=== PATIENT | female | born 1940 | race Caucasian/White ===

== ENCOUNTER 2017-12-17 09:34 | Emergency (ER) | payer MEDICARE ==
[~2017-12-17] VITALS: Ht 160 cm; Wt 43.1 kg
--- NOTE | 2017-12-17 10:12 | PHYS DOC ---
Adult General Chief Complaint Chief Complaint: MECHANICAL FALL HPI HPI Patient is a 77 year old female who presents with pain to her right rib cage after she fell at approximately 6:00 this morning. She states that she fell backwards and a table fell with her impacting on her right anterior rib cage. She denies loss of consciousness or other injury. She has not taken anything for pain this morning. Review of Systems Review of Systems Constitutional: Denies fever or chills [] Respiratory: Denies cough or shortness of breath [] Cardiovascular: No additional information not addressed in HPI [] GI: Denies abdominal pain, nausea, vomiting, bloody stools or diarrhea [] : Denies dysuria or hematuria [] Musculoskeletal: See history of present illness Integument: Denies rash or skin lesions [] Neurologic: Denies headache, focal weakness or sensory changes [] Endocrine: Denies polyuria or polydipsia [] All other systems were reviewed and found to be within normal limits, except as documented in this note. Current Medications Current Medications Current Medications Medications (Trade) Dose Ordered Sig/Sangeeta Start Time Stop Time Status Last Admin Dose Admin Ibuprofen (Motrin) 400 mg 1X ONCE 12/17/17 10:30 12/17/17 10:31 DC 12/17/17 10:06 400 MG Allergies Allergies Allergies Coded Allergies Type Severity Reaction Last Updated Verified Penicillins Allergy Unknown HIVES 12/17/17 Yes acetaminophen Allergy Unknown NAUSEA 12/17/17 Yes codeine Allergy Unknown INSOMNIA 12/17/17 Yes Physical Exam Physical Exam Constitutional: Well developed, well nourished, no acute distress, non-toxic appearance. [] Cardiovascular:Heart rate regular rhythm, no murmur [] Lungs & Thorax: Bilateral breath sounds clear to auscultation, tenderness to right anterior ribs, no gross deformities noted [] Abdomen: Bowel sounds normal, soft, no tenderness, no masses, no pulsatile masses. [] Skin: Warm, dry, no erythema, no rash. [] Back: No tenderness, no CVA tenderness. [] Neurologic: Alert and oriented X 3, normal motor function, normal sensory function, no focal deficits noted. [] Psychologic: Affect normal, judgement normal, mood normal. [] Current Patient Data Vital Signs Vital Signs Date Time Temp Pulse Resp B/P (MAP) Pulse Ox O2 Delivery O2 Flow Rate FiO2 12/17/17 11:12 71 95 12/17/17 09:51 97.6 20 155/63 (93) Room Air 97.6 EKG EKG [] Radiology/Procedures Radiology/Procedures [] PATIENT: YENNI DAMON ACCOUNT: [id number] : 1940 LOCATION: ER AGE: 77 SEX: F EXAM STATUS: REG ER ORD. PHYSICIAN: JENNIFER LYNN APRN REASON: FELL INTO TABLE THIS MORNING PROCEDURE: RIBS RIGHT AND PA CHEST PA chest and right rib radiographs, 3 images. History: Fell into table this morning. Severe right pain. Comparison: None. Findings: Cardiomediastinal silhouette is within normal limits for size. Bilateral lung borges appear clear without evidence of infiltrate, effusion, or pneumothorax. Aortic atherosclerosis is seen. Old granulomatous disease of the chest is noted. Nondisplaced right lateral 9th and 10th rib fractures are seen. Impression: 1. No acute airspace disease. 2. Acute right 9th and 10th rib fractures. Electronically signed by: Jay Kwok MD (12/17/2017 10:40 AM) [facility] DICTATED and SIGNED BY: JAY KWOK MD DATE: 12/17/17 1037 Course & Med Decision Making Course & Med Decision Making Pertinent Labs and Imaging studies reviewed. (See chart for details) []The patient was given an incentive spirometer and training in the emergency department. The patient refuses narcotic pain medication and would prefer to use ibuprofen. Dragon Disclaimer Dragon Disclaimer This electronic medical record was generated, in whole or in part, using a voice recognition dictation system. Departure Departure Impression: Primary Impression: Rib fractures Disposition: 01 HOME, SELF-CARE Condition: STABLE Referrals: YAMILEX CRAWFORD MD (PCP) Patient Instructions: Rib Fracture Additional Instructions: Use the incentive spirometer as respiratory taught you. Take ibuprofen for pain on a scheduled basis. Have a pillow for splinting available for coughing, sneezing or any sudden movements. Follow-up with your primary care provider in one week for recheck or return to the emergency department if worsening. JENNIFER LYNN APRN Dec 17, 2017 10:12
[2017-12-17] MEDS ORDERED: IBUPROFEN 400 MG TABLET. PO ONE (10:30)
--- NOTE | 2017-12-17 10:43 | RAD ---
PA chest and right rib radiographs, 3 images. History: Fell into table this morning. Severe right pain. Comparison: None. Findings: Cardiomediastinal silhouette is within normal limits for size. Bilateral lung borges appear clear without evidence of infiltrate, effusion, or pneumothorax. Aortic atherosclerosis is seen. Old granulomatous disease of the chest is noted. Nondisplaced right lateral 9th and 10th rib fractures are seen. Impression: 1. No acute airspace disease. 2. Acute right 9th and 10th rib fractures. Electronically signed by: Jay Mcmanus MD (12/17/2017 10:40 AM) [place] [id number]
[2017-12-17 11:12] VITALS: BP 154/73
== END 2017-12-17 11:13 | disposition home or self-care (01) ==
LOC: ER 09:34
DX: S22.41XA Multiple fractures of ribs, right side, initial encounter for closed fracture (principal); Z88.0 Allergy status to penicillin; Z88.5 Allergy status to narcotic agent; Z88.6 Allergy status to analgesic agent; W20.8XXA Other cause of strike by thrown, projected or falling object, initial encounter; Y99.8 Other external cause status; Y93.89 Activity, other specified; Y92.89 Other specified places as the place of occurrence of the external cause
CPT/HCPCS: 71101; 99284

== ENCOUNTER → 2018-01-07 | Outpatient (CLI) | payer MEDICARE ==
[2017-12-17 11:12] VITALS: BP 154/73
--- NOTE | 2018-01-07 10:27 | KCIC ---
EXAM: Dual energy x-ray absorptiometry (DEXA). HISTORY: Postmenopausal female presents for osteoporosis screening. COMPARISON: None. TECHNIQUE: Dual energy x-ray absorptiometry of the lumbar spine and left hip was performed. Calculation of bone mineral density based on standard deviations above or below the expected young adult normal value (T-score) was completed. FINDINGS: The average bone mineral density in the 1st through 4th lumbar vertebrae is 0.651 g/cmxcm, corresponding with a T-score of -3.6. The average total bone mineral density in the left hip is 0.512 g/cmxcm, corresponding with a T-score of -3.5. IMPRESSION: Osteoporosis measured at the lumbar spine and left hip. Note: Definitions established by the World Health Organization: 1. Normal: T-score is -1.0 or above. 2. Osteopenia: T-score is between -1.0 and -2.5 . 3. Osteoporosis: T-score is -2.5 or below. Electronically signed by: Rachel Woodson MD (01/07/2018 10:24 AM) [place] [id number]
== END | disposition home or self-care (01) ==
LOC: KCIC DEXA 09:23
PROVIDERS: ATTEND Family Medicine
DX: Z13.820 Encounter for screening for osteoporosis (principal); M81.8 Other osteoporosis without current pathological fracture; Z88.0 Allergy status to penicillin; Z88.5 Allergy status to narcotic agent; Z88.6 Allergy status to analgesic agent
CPT/HCPCS: 77080

== ENCOUNTER 2018-07-10 14:14 | Emergency (ER) | payer MEDICARE ==
[~2018-07-10] VITALS: Ht 160 cm; Wt 42.2 kg
[2018-07-10] MEDS ORDERED: IV NORMAL SALINE 1000ML BAG 1,000 ML IV ONE (14:30)
[2018-07-10] MEDS ORDERED: cloNIDine HCL 0.1 MG TABLET PO ONE (14:30)
[2018-07-10 14:44] LABS: BASO # 0.1 x10^3/uL (0.0-0.2); BASO % 1 % (0-3); EOS # 0.1 x10^3/uL (0.0-0.7); EOS % 1 % (0-3); HEMATOCRIT 39.7 % (36.0-47.0); HEMOGLOBIN 13.3 g/dL (12.0-15.5); LYMPH % 28 % (24-48); MEAN CORPUSCULAR HEMOGLOBIN 29 pg (25-35); MEAN CORPUSCULAR HGB CONC 34 g/dL (31-37); MEAN CORPUSCULAR VOLUME 87 fL (79-100); MONO # 0.4 x10^3/uL (0.0-1.1); MONO % 6 % (0-9); NEUT # 4.5 x10^3uL (1.8-7.7); NEUT % 64 % (31-73); PLATELET COUNT 301 x10^3/uL (140-400); RED BLOOD COUNT 4.55 x10^6/uL (3.50-5.40); WHITE BLOOD COUNT 7.1 x10^3/uL (4.0-11.0)
[2018-07-10 14:58] LABS: CALCIUM 9.5 mg/dL (8.5-10.1); CREATININE 0.6 mg/dL (0.6-1.0); GFR 97.2; POTASSIUM 3.5 mmol/L (3.5-5.1)
[2018-07-10 15:04] LABS: ALBUMIN 3.9 g/dL (3.4-5.0); ALBUMIN/GLOBULIN RATIO 1.1 (1.0-1.7); TOTAL BILIRUBIN 0.6 mg/dL (0.2-1.0); TOTAL PROTEIN 7.3 g/dL (6.4-8.2)
--- NOTE | 2018-07-10 15:11 | RAD ---
AP portable chest 07/10/2018. Reason for exam: Hypertension. Comparison is made with a study done on 12/17/2017. No new infiltrate or effusion is seen. There is suggestion of some right apical scarring similar to the prior exam. Heart size and pulmonary vascularity appear normal. IMPRESSION: No acute findings. Electronically signed by: Emre Zarate Jr., MD (07/10/2018 3:08 PM) [facility] [place]
--- NOTE | 2018-07-10 15:12 | RAD ---
CT head without contrast 07/10/2018. Reason for exam: Hypertension. Headache. Noncontrast images were performed. Exposure: One or more of the following individualized dose reduction techniques were utilized for this examination: 1. Automated exposure control 2. Adjustment of the mA and/or kV according to patient size 3. Use of iterative reconstruction technique. There is no apparent intracranial mass, hemorrhage or abnormal extra-axial fluid collection. There is minimal low attenuation in the cerebral white matter suggesting chronic small vessel ischemic injury. No other area of abnormal density is identified. The ventricles and basilar cisterns are normally positioned. The sinuses and mastoid air cells appear clear. IMPRESSION: No acute intracranial abnormality. Electronically signed by: Emre Zarate Jr., MD (07/10/2018 3:09 PM) [facility] [place]
[2018-07-10] MEDS ORDERED: KETOROLAC 15 MG/ML VIAL. IV ONE (16:00)
[2018-07-10 16:50] VITALS: BP 158/71
[2018-07-10] MEDS ORDERED: METOPROLOL TARTRATE 5 MG/5 ML VIAL. IVP ONE ×2 (16:53→17:00)
--- NOTE | 2018-07-10 16:57 | PHYS DOC ---
Past Medical History Past Medical History: Anemia, High Cholesterol, Hypertension Additional Past Medical Histor: left sided detached retina Additional Information: 4 ciggs per day Alcohol Use: Rarely Additional Information: rare Drug Use: None Adult General Chief Complaint Chief Complaint: HEADACHE HPI HPI Patient is a 78 year old female who presents with headache 2 hours. The patient states that she also has had hypertension. She states that in the past her high blood pressure caused her to have a headache. She feels that this might be what is happening today. She lives in an assisted living facility and could not find anyone to drive her and used EMS to bring her to the hospital. She denies chest pain, shortness of breath or diaphoresis. She denies paresthesias or changes in vision. The patient states that she did take her medications today but is unsure of what they are called. She has a history of a detached retina but is denying any visual changes at this time. Review of Systems Review of Systems Constitutional: Denies fever or chills [] Respiratory: Denies cough or shortness of breath [] Cardiovascular: No additional information not addressed in HPI [] GI: Denies abdominal pain, nausea, vomiting, bloody stools or diarrhea [] : Denies dysuria or hematuria [] Musculoskeletal: Denies back pain or joint pain [] Integument: Denies rash or skin lesions [] Neurologic: See history of present illness Endocrine: Denies polyuria or polydipsia [] All other systems were reviewed and found to be within normal limits, except as documented in this note. Current Medications Current Medications Current Medications Medications (Trade) Dose Ordered Sig/Sangeeta Start Time Stop Time Status Last Admin Dose Admin Clonidine HCl (Catapres) 0.1 mg 1X ONCE 07/10/18 14:30 07/10/18 14:31 DC 07/10/18 15:23 0.1 MG Ketorolac Tromethamine (Toradol 15mg Vial) 15 mg 1X ONCE 07/10/18 16:00 07/10/18 16:01 DC 07/10/18 16:02 15 MG Metoprolol Tartrate (Lopressor Vial) 5 mg STK-MED ONCE 07/10/18 16:53 07/10/18 16:54 DC Sodium Chloride 1,000 ml @ 1,000 mls/hr 1X ONCE 07/10/18 14:30 3/2/19 15:29 DC 07/10/18 15:22 1,000 MLS/HR Allergies Allergies Allergies Coded Allergies Type Severity Reaction Last Updated Verified Penicillins Allergy Unknown HIVES 12/17/17 Yes acetaminophen Allergy Unknown NAUSEA 12/17/17 Yes codeine Allergy Unknown INSOMNIA 12/17/17 Yes Physical Exam Physical Exam Constitutional: Well developed, well nourished, no acute distress, non-toxic appearance. [] HENT: Normocephalic, atraumatic, bilateral external ears normal, oropharynx moist, no oral exudates, nose normal. [] Eyes: PERRLA, EOMI, conjunctiva normal, no discharge. [] Neck: Normal range of motion, no tenderness, supple, no stridor. [] Cardiovascular:Heart rate regular rhythm, no murmur [] Lungs & Thorax: Bilateral breath sounds clear to auscultation [] Abdomen: Bowel sounds normal, soft, no tenderness, no masses, no pulsatile masses. [] Skin: Warm, dry, no erythema, no rash. [] Back: No tenderness, no CVA tenderness. [] Extremities: No tenderness, no cyanosis, no clubbing, ROM intact, no edema. [] Neurologic: Alert and oriented X 3, normal motor function, normal sensory function, no focal deficits noted, cranial nerves II through XII are grossly intact. [] Psychologic: Affect normal, judgement normal, mood normal. [] Current Patient Data Vital Signs Vital Signs Date Time Temp Pulse Resp B/P (MAP) Pulse Ox O2 Delivery O2 Flow Rate FiO2 07/10/18 17:00 78 07/10/18 16:50 16 99 07/10/18 15:23 169/65 07/10/18 14:14 97.7 Room Air 97.7 Lab Values Laboratory Tests Test 07/10/18 14:35 White Blood Count 7.1 x10^3/uL (4.0-11.0) Red Blood Count 4.55 x10^6/uL (3.50-5.40) Hemoglobin 13.3 g/dL (12.0-15.5) Hematocrit 39.7 % (36.0-47.0) Mean Corpuscular Volume 87 fL (79-100) Mean Corpuscular Hemoglobin 29 pg (25-35) Mean Corpuscular Hemoglobin Concent 34 g/dL (31-37) Red Cell Distribution Width 14.0 % (11.5-14.5) Platelet Count 301 x10^3/uL (140-400) Neutrophils (%) (Auto) 64 % (31-73) Lymphocytes (%) (Auto) 28 % (24-48) Monocytes (%) (Auto) 6 % (0-9) Eosinophils (%) (Auto) 1 % (0-3) Basophils (%) (Auto) 1 % (0-3) Neutrophils # (Auto) 4.5 x10^3uL (1.8-7.7) Lymphocytes # (Auto) 2.0 x10^3/uL (1.0-4.8) Monocytes # (Auto) 0.4 x10^3/uL (0.0-1.1) Eosinophils # (Auto) 0.1 x10^3/uL (0.0-0.7) Basophils # (Auto) 0.1 x10^3/uL (0.0-0.2) Sodium Level 136 mmol/L (136-145) Potassium Level 3.5 mmol/L (3.5-5.1) Chloride Level 98 mmol/L (98-107) Carbon Dioxide Level 23 mmol/L (21-32) Anion Gap 15 (6-14) H Blood Urea Nitrogen 14 mg/dL (7-20) Creatinine 0.6 mg/dL (0.6-1.0) Estimated GFR (Cockcroft-Gault) 97.2 BUN/Creatinine Ratio 23 (6-20) H Glucose Level 97 mg/dL (70-99) Calcium Level 9.5 mg/dL (8.5-10.1) Total Bilirubin 0.6 mg/dL (0.2-1.0) Aspartate Amino Transferase (AST) 20 U/L (15-37) Alanine Aminotransferase (ALT) 27 U/L (14-59) Alkaline Phosphatase 77 U/L (46-116) Troponin I Quantitative < 0.017 ng/mL (0.000-0.055) Total Protein 7.3 g/dL (6.4-8.2) Albumin 3.9 g/dL (3.4-5.0) Albumin/Globulin Ratio 1.1 (1.0-1.7) Laboratory Tests 07/10/18 14:35 Laboratory Tests 07/10/18 14:35 EKG EKG [] Radiology/Procedures Radiology/Procedures []Signed PATIENT: YENNI DAMON ACCOUNT: [id number] : 1940 LOCATION: ER AGE: 78 SEX: F EXAM STATUS: PRE ER ORD. PHYSICIAN: JENNIFER LYNN APRN REASON: hypertension PROCEDURE: CT HEAD WO CONTRAST CT head without contrast 07/10/2018. Reason for exam: Hypertension. Headache. Noncontrast images were performed. Exposure: One or more of the following individualized dose reduction techniques were utilized for this examination: 1. Automated exposure control 2. Adjustment of the mA and/or kV according to patient size 3. Use of iterative reconstruction technique. There is no apparent intracranial mass, hemorrhage or abnormal extra-axial fluid collection. There is minimal low attenuation in the cerebral white matter suggesting chronic small vessel ischemic injury. No other area of abnormal density is identified. The ventricles and basilar cisterns are normally positioned. The sinuses and mastoid air cells appear clear. IMPRESSION: No acute intracranial abnormality. Electronically signed by: Yo Zarate Jr., MD (07/10/2018 3:09 PM) [facility] [place] DICTATED and SIGNED BY: YO ZARATE Jr, MD DATE: 07/10/18 1508 Signed PATIENT: YENNI DAMON ACCOUNT: [id number] : 1940 LOCATION: ER AGE: 78 SEX: F EXAM STATUS: PRE ER ORD. PHYSICIAN: JENNIFER LYNN APRN REASON: hypertension PROCEDURE: CHEST AP ONLY AP portable chest 07/10/2018. Reason for exam: Hypertension. Comparison is made with a study done on 12/17/2017. No new infiltrate or effusion is seen. There is suggestion of some right apical scarring similar to the prior exam. Heart size and pulmonary vascularity appear normal. IMPRESSION: No acute findings. Electronically signed by: Yo Zarate Jr., MD (07/10/2018 3:08 PM) [facility] [place] DICTATED and SIGNED BY: YO ZARATE Jr, MD DATE: 07/10/18 150 Course & Med Decision Making Course & Med Decision Making Pertinent Labs and Imaging studies reviewed. (See chart for details) []The patient was given Lopressor and clonidine in the emergency department as well as fluids and Toradol. Her headache has completely resolved and her blood pressure is coming down into normal range. She states that she feels much better and would like to be discharged home. Dragon Disclaimer Dragon Disclaimer This electronic medical record was generated, in whole or in part, using a voice recognition dictation system. Departure Departure Impression: Primary Impression: Headache Additional Impression: Hypertension Disposition: 01 HOME, SELF-CARE Condition: STABLE Referrals: YAMILEX CRAWFORD MD (PCP) Patient Instructions: General Headache Without Cause, Hypertension Additional Instructions: You may take ibuprofen for your headache. Follow-up with your primary care provider for a recheck in 2 days. If worsening return to the emergency department. Problem Qualifiers JENNIFER LYNN APRN Jul 10, 2018 16:57
--- NOTE | 2018-07-11 07:54 | EKG ---
[facility] [address] [place] [address] Test Date: 2018-07-10 Test Time: 14:21:45 Pat Name: YENNI DAMON Department: Room: Gender: F [employer]: : 1940 Requested By: JENNIFER LYNN Order Number: [id number] Reading MD: Sarabjit Roberts MD Measurements Intervals [place] Rate: 81 P: 56 NM: 122 QRS: 14 QRSD: 78 T: 49 QT: 390 QTc: 459 Interpretive Statements SINUS RHYTHM Electronically Signed On 07-13-2018 7:44:30 [employer]UAL [employer]CRUITER by Sarabjit Roberts MD
== END 2018-07-10 17:06 | disposition home or self-care (01) ==
LOC: ER 14:14
DX: R51 Headache (principal); I10 Essential (primary) hypertension; E78.00 Pure hypercholesterolemia, unspecified; F17.210 Nicotine dependence, cigarettes, uncomplicated; Z88.0 Allergy status to penicillin; Z88.5 Allergy status to narcotic agent; Z88.6 Allergy status to analgesic agent
CPT/HCPCS: 36415; 70450; 71045; 80053; 84484; 85025; 93005; 96374; 99284; J1885; J7030

== ENCOUNTER 2020-12-29 15:26 | Emergency (ER) | payer MEDICARE ==
[~2020-12-29] VITALS: Ht 160 cm; Wt 40.0 kg
[2020-12-29 16:07] LABS: BASO # 0.1 x10^3/uL (0.0-0.2); BASO % 1 % (0-3); EOS # 0.1 x10^3/uL (0.0-0.7); EOS % 1 % (0-3); HEMATOCRIT 40.1 % (36.0-47.0); HEMOGLOBIN 13.7 g/dL (12.0-15.5); LYMPH # 2.2 x10^3/uL (1.0-4.8); LYMPH % 26 % (24-48); MEAN CORPUSCULAR HEMOGLOBIN 30 pg (25-35); MEAN CORPUSCULAR HGB CONC 34 g/dL (31-37); MEAN CORPUSCULAR VOLUME 89 fL (79-100); MONO # 0.6 x10^3/uL (0.0-1.1); MONO % 7 % (0-9); NEUT # 5.3 x10^3/uL (1.8-7.7); NEUT % 65 % (31-73); PLATELET COUNT 316 x10^3/uL (140-400); RED BLOOD COUNT 4.52 x10^6/uL (3.50-5.40); WHITE BLOOD COUNT 8.2 x10^3/uL (4.0-11.0)
--- NOTE | 2020-12-29 16:16 | RAD ---
XR CHEST 1V CLINICAL INDICATIONS: Hypertension: COMPARISON: July 10, 2018. Findings: Chronic hyperinflation and interstitial lung disease is seen consistent with COPD. Old gran ulomatous disease evident. No new lung infiltrate or pleural effusion or pulmonary edema or lung mass or pneumothorax is seen. The heart size, pulmonary vasculature, mediastinum and both nabil are stabl e. IMPRESSION: COPD. No new radiographic abnormality is seen. Electronically signed by: Lucio Machado MD (12/29/2020 4:13 PM) [id number]
--- NOTE | 2020-12-29 16:35 | PHYS DOC ---
Past Medical History Past Medical History: Anemia, High Cholesterol, Hypertension Additional Past Medical Histor: left sided detached retina Past Surgical History: No Surgical History Smoking Status: Current Every Day Smoker Alcohol Use: Rarely Drug Use: None General Adult EDM: Chief Complaint: HYPERTENSION HPI: HPI: 80-year-old female past medical history of hypertension, hyperlipidemia and tobacco dependence, presents the ED for by EMS with concern for elevated blood pressure stating "I felt like it was going to pass out," with associated light- headedness, shaking, right shoulder and right neck pain. Reports her blood pressure was 160/92. States her blood pressure is normally in the 140/80 range. Has not missed her blood pressure medications. Reports she's tolerating food and drink and states "I eat alot." Denies any associated chest pain, shortness of breath, syncope, head injury or loss of consciousness. Denies any substance abuse. Review of Systems: Review of Systems: Constitutional: Denies fever or chills. [] Eyes: Denies change in visual acuity. [] HENT: Denies nasal congestion or sore throat. [] Respiratory: Denies cough or shortness of breath. [] Cardiovascular: Denies chest pain or edema. [] GI: Denies abdominal pain, nausea, vomiting, bloody stools or diarrhea. [] Musculoskeletal: Denies back pain or joint pain. [] Integument: Denies rash or blistering lesions Neurologic: Denies focal weakness or sensory changes. [] Endocrine: Denies polyuria or polydipsia. [] Lymphatic: Denies swollen glands. [] Psychiatric: Denies depression or anxiety. [] Heart Score: C/O Chest Pain: No Risk Factors: Risk Factors: DM, Current or recent (<one month) smoker, HTN, HLP, family history of CAD, obesity. Risk Scores: Score 0 - 3: 2.5% MACE over next 6 weeks - Discharge Home Score 4 - 6: 20.3% MACE over next 6 weeks - Admit for Clinical Observation Score 7 - 10: 72.7% MACE over next 6 weeks - Early Invasive Strategies Allergies: Allergies: Allergies Coded Allergies Type Severity Reaction Last Updated Verified Penicillins Allergy Unknown HIVES 12/17/17 Yes acetaminophen Allergy Unknown NAUSEA 12/17/17 Yes codeine Allergy Unknown INSOMNIA 12/17/17 Yes Physical Exam: PE: Constitutional: Well developed, well nourished, no acute distress, non-toxic appearance, very thin HENT: Normocephalic, atraumatic, very dry mucous membranes Eyes: EOMI, conjunctiva normal, no discharge. Neck: Normal range of motion, supple, Cardiovascular: S1/2 present, regular rhythm Lungs & Thorax: Speaking in full sentences, bilateral equal chest rise, no tachypnea or increased work of breathing Abdomen: soft, no tenderness, Skin: Warm, dry, no erythema, no rash. [] Back: No tenderness, no CVA tenderness. [] Extremities: No tenderness, no cyanosis, no lower extremity edema Neurologic: Alert and oriented X 3, normal motor function, normal sensory function, no focal deficits noted. [] Psychologic: Affect normal, judgement normal, mood-anxious Current Patient Data: Labs: Laboratory Tests Test 12/29/20 15:47 White Blood Count 8.2 x10^3/uL (4.0-11.0) Red Blood Count 4.52 x10^6/uL (3.50-5.40) Hemoglobin 13.7 g/dL (12.0-15.5) Hematocrit 40.1 % (36.0-47.0) Mean Corpuscular Volume 89 fL (79-100) Mean Corpuscular Hemoglobin 30 pg (25-35) Mean Corpuscular Hemoglobin Concent 34 g/dL (31-37) Red Cell Distribution Width 14.0 % (11.5-14.5) Platelet Count 316 x10^3/uL (140-400) Neutrophils (%) (Auto) 65 % (31-73) Lymphocytes (%) (Auto) 26 % (24-48) Monocytes (%) (Auto) 7 % (0-9) Eosinophils (%) (Auto) 1 % (0-3) Basophils (%) (Auto) 1 % (0-3) Neutrophils # (Auto) 5.3 x10^3/uL (1.8-7.7) Lymphocytes # (Auto) 2.2 x10^3/uL (1.0-4.8) Monocytes # (Auto) 0.6 x10^3/uL (0.0-1.1) Eosinophils # (Auto) 0.1 x10^3/uL (0.0-0.7) Basophils # (Auto) 0.1 x10^3/uL (0.0-0.2) FT-Thn-R-Type Natriuretic Peptide 169 pg/mL (0-449) Laboratory Tests 12/29/20 15:47 Vital Signs: Vital Signs Date Time Temp Pulse Resp B/P (MAP) Pulse Ox O2 Delivery O2 Flow Rate FiO2 12/29/20 15:44 98.2 87 20 181/73 (100) 97 Room Air 98.2 EKG: EKG: Sinus rhythm 77 bpm, no axis deviation, normal intervals, no T wave inversions, no ST elevations or ST depressions, no active chest pain Radiology/Procedures: Radiology/Procedures: IMAGING REPORT Signed PATIENT: YENNI DAMON RACCOUNT: [id number] : 1940 LOCATION: ER AGE: 80 SEX: F EXAM STATUS: REG ER ORD. PHYSICIAN: RONEL RUSSELL DO REASON: htn PROCEDURE: PORTABLE CHEST 1V XR CHEST 1V CLINICAL INDICATIONS: Hypertension: COMPARISON: July 10, 2018. Findings: Chronic hyperinflation and interstitial lung disease is seen consistent with COPD. Old granulomatous disease evident. No new lung infiltrate or pleural effusion or pulmonary edema or lung mass or pneumothorax is seen. The heart size, pulmonary vasculature, mediastinum and both nabil are stable. IMPRESSION: COPD. No new radiographic abnormality is seen. Electronically signed by: Jose Machado MD (12/29/2020 4:13 PM) [id number] DICTATED and SIGNED BY: JOSE MACHADO MD DATE: 12/29/20 [id number] 0 Course & Med Decision Making: Course & Med Decision Making Pertinent Labs and Imaging studies reviewed. (See chart for details) Concern for asymptomatic, uncontrolled hypertension, in the absence of any neurologic deficits. Will discharge home with strict ED return precautions were given for logic deficits including facial droop, aphasia or weakness, chest beth n or difficulties breathing. Encouraged urgent outpatient follow-up with PMD for repeat BP check. Life-threatening processes were considered but are low suspicion at this time, given history, physical exam and ED workup. Pt was educated on all prescription medications and adverse effects. All patient's questions were answered and pt was stable at time of discharge. Life/limb-threatening differential includes but is not limited to, abdominal aortic aneurysm, aortic dissection, acute coronary syndrome, anemia, valvular disorder, cerebrovascular accident, drug overdose or toxidrome, arrhythmia, prolonged QT syndrome, hemorrhage, heat illness, intracranial hemorrhage, infection including meningitis/encephalitis/sepsis/toxic shock/myocarditis, vertebrobasilar insufficiency, seizure, medication adverse event, illicit drug use, electrolyte disorder I have spoken with the patient and/or caregivers. I explained the patient's condition, diagnoses and treatment plan based on the information available to me at this time. I have answered the patient and/or caregiver's questions and addressed any concerns. The patient and/or caregivers have a good understanding of patient's diagnosis, condition and treatment plan as can be expected at this point. Vital signs have been stable. Patient's condition is stable and appropriate for discharge from the emergency department. Patient will pursue further outpatient evaluation with primary care physician or other designated or consulting physician as outlined in the discharge instructions. The patient and/or caregivers are agreeable to this plan of care and follow-up instructions have been explained in detail. The patient and/or caregivers have received these instructions in written form and have expressed an understanding of the discharge instructions. The patient and/or caregivers are aware that any significant change of condition or worsening of symptoms should prompt immediate return to this or the closest emergency department or call to [phone]. Tootie Disclaimer: Tootie Disclaimer: This electronic medical record was generated, in whole or in part, using a voice recognition dictation system. Departure Departure Impression: Primary Impression: Uncontrolled hypertension Additional Impression: COPD (chronic obstructive pulmonary disease) Disposition: HOME / SELF CARE / HOMELESS Condition: STABLE Referrals: RAFIQ WALKER APRN (PCP) Follow-up with your primary care physician in 24 to 48 hours for blood pressure check OR FOLLOW UP WITH FAMILY MEDICINE: [address], [address] [place] [address] Patient Instructions: Chronic Obstructive Pulmonary Disease, Hypertension Additional Instructions: EMERGENCY DEPARTMENT GENERAL DISCHARGE INSTRUCTIONS Thank you for coming to [facility] Emergency Department (ED) today and trusting us with you care. We trust that you had a positive experience in our Emergency Department. If you wish to speak to the department management, you may call the Director at [phone]. YOUR FOLLOW UP INSTRUCTIONS ARE FOLLOWS: 1. Do you have a private Doctor? If you do not have a private doctor, please ask for a resource list of physicians or clinics that may be able to assist you with follow up care. 2. The Emergency Physicain has interpreted your x-rays. The X-Ray specialist will also review them. If there is a change in the findings, you will be notified in 48 hours when at all possible. 3. A lab test or culture has been done, your results will be reviewed and you will be notified if you need a change in treatment. ADDITIONAL INSTRUCTIONS AND INFORMATION: 1. Your care today has been supervised by a physician who is specially trained in emergency care. Many problems require more than one evaluation for a complete diagnosis and treatment. We recommend that you schedule your follow up appointment as recommended to ensure complete treatment of you illness or injury. If you are unable to obtain follow up care and continue to have a problem, or if your condition worsens, we recommend that you return to the ED. 2. We are not able to safely determine your condition over the phone nor are we able to give sound medical advice over the phone. For these safety reasons, if you call for medical advice we will ask you to come to the ED for further evaluation. 3. If you have any questions regarding these discharge instructions please call the ED at [phone]. SAFETY INFORMATION: In the interest of safety, wellness, and injury prevention; we encourage you to wear your sealbelt, if you smoke; quite smoking, and we encourage family to use a protective helmet for bicycling and other sporting events that present an increased risk for head injury. IF YOUR SYMPTOMS WORSEN OR NEW SYMPTOMS DEVELOP, OR YOU HAVE CONCERNS ABOUT YOUR CONDITION; OR IF YOUR CONDITION WORSENS WHILE YOU ARE WAITING FOR YOUR FOLLOW UP APPOINTMENT; EITHER CONTACT YOUR PRIMARY CARE DOCTOR, THE PHYSICIAN WHOSE NAME AND NUMBER YOU WERE GIVEN, OR RETURN TO THE ED IMMEDIATELY. [facility] DO Dec 29, 2020 16:35
[2020-12-29 16:55] LABS: CALCIUM 9.3 mg/dL (8.5-10.1); CREATININE 0.7 mg/dL (0.6-1.0); GFR 80.9; POTASSIUM 3.3 mmol/L (3.5-5.1)
[2020-12-29 17:03] LABS: ALBUMIN/GLOBULIN RATIO 1.2 (1.0-1.7); MAGNESIUM 2.4 mg/dL (1.8-2.4); TOTAL BILIRUBIN 0.5 mg/dL (0.2-1.0); TOTAL PROTEIN 7.4 g/dL (6.4-8.2)
[2020-12-29 18:15] VITALS: BP 169/72
--- NOTE | 2020-12-31 03:43 | EKG ---
[facility] [address] [place] [address] Test Date: 2020-12-29 Test Time: 16:21:36 Pat Name: YENNI DAMON Department: Room: Gender: F Childcare Provider: : 1940 Requested By: ROENL RUSSELL Order Number: [id number] Reading MD: Measurements Intervals [place] Rate: 77 P: 54 ID: [id number] QRS: 7 QRSD: 74 T: 34 QT: 392 QTc: 445 Interpretive Statements SINUS RHYTHM LEFT ATRIAL ABNORMALITY LOW LIMB LEAD VOLTAGE QRS(T) CONTOUR ABNORMALITY CONSIDER INFERIOR MYOCARDIAL DAMAGE ABNORMAL ECG RI6.01 No previous ECG available for comparison
== END 2020-12-29 18:45 | disposition home or self-care (01) ==
LOC: ER 15:26
DX: I10 Essential (primary) hypertension (principal); J44.9 Chronic obstructive pulmonary disease, unspecified; E78.00 Pure hypercholesterolemia, unspecified; F17.200 Nicotine dependence, unspecified, uncomplicated; Z88.0 Allergy status to penicillin; Z88.5 Allergy status to narcotic agent; Z88.6 Allergy status to analgesic agent
CPT/HCPCS: 36415; 71045; 80053; 83735; 83880; 84484; 85025; 93005; 99285-25

== ENCOUNTER → 2021-01-15 | Outpatient (CLI) | payer MEDICARE ==
[2020-12-29 18:15] VITALS: BP 169/72
--- NOTE | 2021-01-15 09:32 | KCIC ---
EXAM: ULTRASOUND SOFT TISSUE NECK CLINICAL HISTORY: Right lateral neck lump noticed 3 weeks ago. COMPARISON: None available. TECHNIQUE: Limited sonographic evaluation area of clinical concern in the right lateral neck soft tis adali, supplemented by color Doppler. FINDINGS: There is a 1.2 x 1.2 x 0.5 cm lobulated complicated cystic structure with low-level internal echoes s een in the subcutaneous tissue of the right lateral neck (area of clinical concern). IMPRESSION: Findings suggesting of complicated sebaceous cyst, likely hemorrhagic or infected. Clinical correlati on is advised and may consider ultrasound follow-up in 6 weeks to ensure resolution/stability. Electronically signed by: Caridad Barrios MD (01/15/2021 9:30 AM) [id number]
== END ==
LOC: KCIC US 08:16
PROVIDERS: ATTEND Nurse Practitioner Family
DX: L73.2 Hidradenitis suppurativa (principal); R22.1 Localized swelling, mass and lump, neck
CPT/HCPCS: 76536

== ENCOUNTER → 2021-02-27 | Day surgery (SDC) | payer MEDICARE ==
[~2021-02-27] VITALS: Ht 160 cm; Wt 40.0 kg
[~2021-02-27] MED LIST: LIDOCAINE 1%/EPI 1:100,000 20 ML VIAL. INJ ONE; LIDOCAINE 1%/EPI 1:100,000 20 ML VIAL. ONE
[2021-02-27 12:57] VITALS: BP 169/72
--- NOTE | 2021-02-27 14:03 | PDOC4 ---
Operative Note Operative Note Date: February 27 at 1402 Preoperative diagnosis: Right neck mass Postoperative diagnosis: Same Procedure: Excision of right neck mass Surgeon: Dominic Specimen: Right neck mass Dictation: Patient is a 80-year-old female with a mass in her right mid neck. Procedure of excision was explained to the patient detail was benefits were also discussed including bleeding infection alternatives this procedure also discussed with the patient who seemed to understand and gave a verbal written consent had procedure performed. Patient was taken to the minor's room placed in the supine position her right neck was prepped and draped usual sterile fashion using ChloraPrep. Area around the mass was injected 1% lidocaine with epinephrine once this was anesthetized and incision was made 15 blade scalpel and the mass was excised sharply with Metzenbaum scissors. The mass size was 1 cm with a half a centimeter margin superficial in the subcutaneous space. The wound was then closed in a single layer of 4-0 subcuticular Monocryl Mastisol Steri-Strips and island dressing were applied. Patient tolerated procedure well was discharged home in stable condition all sponge instrument needle counts listed as correct estimated blood loss less than 5 mL JANINA ABAD MD Feb 27, 2021 14:03
--- NOTE | 2021-02-27 14:05 | DISCH ---
DISCHARGE INSTRUCTIONS Condition on Discharge Condition on Discharge: Stable Activity After Discharge Activity Instructions for Disc: Resume previous activity Diet after Discharge Diet after Discharge: Regular Wound Incision Care Other wound/incision instructi: Mattie shower in 24 hours Contacting the DRRenetta after DC Call your doctor for: If your condition worsens Follow-Up Follow up with: Dr. Abad in 2-week JANINA ABAD MD Feb 27, 2021 14:05
== END | disposition home or self-care (01) ==
LOC: SURG 10:33
PROVIDERS: ATTEND Surgery
DX: R22.1 Localized swelling, mass and lump, neck (principal); D18.09 Hemangioma of other sites; I82.90 Acute embolism and thrombosis of unspecified vein; I10 Essential (primary) hypertension; E78.00 Pure hypercholesterolemia, unspecified; J43.9 Emphysema, unspecified; M19.90 Unspecified osteoarthritis, unspecified site; M81.0 Age-related osteoporosis without current pathological fracture; F17.210 Nicotine dependence, cigarettes, uncomplicated; Z79.899 Other long term (current) drug therapy; Z98.890 Other specified postprocedural states; Z88.0 Allergy status to penicillin; Z88.5 Allergy status to narcotic agent; Z88.6 Allergy status to analgesic agent; Z88.8 Allergy status to other drugs, medicaments and biological substances
CPT/HCPCS: 11422; 88305; J3490; 21555

== ENCOUNTER 2021-06-29 08:34 | Inpatient (IN) | payer MEDICARE ==
[~2021-06-29] VITALS: Ht 160 cm; Wt 40.3 kg
[2021-06-29] VITALS (15 sets, daily range): BP systolic 104–135; BP diastolic 49–65
[2021-06-29] MEDS ORDERED: IV NORMAL SALINE 1000ML BAG 1,000 ML IV ONE (09:00)
--- NOTE | 2021-06-29 09:14 | PHYS DOC ---
Past Medical History Past Medical History: Anemia, High Cholesterol, Hypertension Additional Past Medical Histor: left sided detached retina (MAHESHDEVIN COLLAR TACKER) Past Surgical History: No Surgical History Additional Past Surgical Histo: left eye retinal x 5, dental extractions (LYLYDEVIN COLLAR TACKER) Smoking Status: Current Every Day Smoker Alcohol Use: None Drug Use: None (DEVIN ARNOLD COLLAR TACKER) General Adult EDM: Chief Complaint: DIZZY/LIGHT HEADED HPI: HPI: Patient is a 81 year old female who presents with went to stand up this morning and became lightheaded, "feeling as though I was going to pass out." She went to sit back on the seat on her walker and half way missed and slowly went to the ground by herself. She states when this happened she twisted her Left knee and left ankle. She rates this aching pain a 8/10. She denies syncope, headache, change in vision, chest pain, soa, fever, urinary symptoms, numbness or tingling, abdominal pain, back pain, neck pain, hitting her head, focal weakness, fever, cough, nausea, vomiting, diarrhea. Patient has a history of hypertension, osteoporosis, sebaceous cyst with removal, rib fractures, high cholesterol, smoking and anemia, 5 left retinal surgeries. Patient has permitted left pupil dilation from muscle weakness from surgeries to her retina. (DEVIN ARNOLD COLLAR TACKER) Review of Systems: Review of Systems: Constitutional: Denies fever or chills. [] Eyes: Denies change in visual acuity. [] HENT: Denies nasal congestion or sore throat. [] Respiratory: Denies cough or shortness of breath. [] Cardiovascular: Denies chest pain or edema. [] GI: Denies abdominal pain, nausea, vomiting, bloody stools or diarrhea. [] : Denies dysuria. [] Musculoskeletal: Denies back pain or + left knee joint pain. + Left ankle [] Integument: Denies rash. [] Neurologic: Denies headache, focal weakness or sensory changes. +light he adedness[] Endocrine: Denies polyuria or polydipsia. [] Lymphatic: Denies swollen glands. [] Psychiatric: Denies depression or anxiety. [] (DEVIN ARNOLD COLLAR TACKER) Heart Score: C/O Chest Pain: No HEART Score for Chest Pain: HEART Score for Chest Pain Response (Comments) Value History Slighlty/Non-Suspicious 0 ECG Nonspecific Repolarizatio 1 Age > 65 2 Risk Factors 1 or 2 Risk Factors 1 Troponin < Normal Limit 0 Total 4 Risk Factors: Risk Factors: DM, Current or recent (<one month) smoker, HTN, HLP, family history of CAD, obesity. Risk Scores: Score 0 - 3: 2.5% MACE over next 6 weeks - Discharge Home Score 4 - 6: 20.3% MACE over next 6 weeks - Admit for Clinical Observation Score 7 - 10: 72.7% MACE over next 6 weeks - Early Invasive Strategies ([facility],DEVIN M COLLAR TACKER) Allergies: Allergies: Allergies Coded Allergies Type Severity Reaction Last Updated Verified Penicillins Allergy Intermediate HIVES 06/29/21 Yes acetaminophen Adverse Reaction Intermediate NAUSEA 06/29/21 Yes morphine Adverse Reaction Intermediate Anxiety 06/29/21 Yes (DEVIN ARNOLD M COLLAR TACKER) Physical Exam: PE: Constitutional: Well developed, well nourished, no acute distress, non-toxic appearance. [] HENT: Normocephalic, atraumatic, bilateral external ears normal, oropharynx moist, no oral exudates, nose normal. [] Eyes: EOMI, conjunctiva normal, no discharge. Left eye pupil permanently enlarg ed from retinal damage. Right eye PERRLA. [] Neck: Normal range of motion, no tenderness, supple, no stridor. [] Cardiovascular:Heart rate regular rhythm, no murmur [] Lungs & Thorax: Bilateral breath sounds clear to auscultation [] Abdomen: Bowel sounds normal, soft, no tenderness, no masses, no pulsatile masses. [] Skin: Warm, dry, no erythema, no rash. [] Back: No tenderness, no CVA tenderness. [] Extremities: No tenderness, no cyanosis, no clubbing, left ankle and left knee ROM intact but painful, no edema. [] Neurologic: Alert and oriented X 3, normal motor function, normal sensory function, no focal deficits noted. [] Psychologic: Affect normal, judgement normal, mood normal. [] ([facility],DEVIN M COLLAR TACKER) Current Patient Data: Vital Signs: Vital Signs Date Time Temp Pulse Resp B/P (MAP) Pulse Ox O2 Delivery O2 Flow Rate FiO2 06/29/21 08:38 97.7 91 20 161/66 (97) 97 Room Air 97.7 (DEVIN ARNOLD APRN) EKG: EK and read by Dr. Pabon is a sinus rhythm but no STEMI. (DEVIN ARNOLD APRN) Radiology/Procedures: Radiology/Procedures: [] Impression: [address] [address] IMAGING REPORT Signed PATIENT: YENNI DAMONCOUNT: [id number] : 1940 LOCATION: ER AGE: 81 SEX: F EXAM STATUS: PRE ER ORD. PHYSICIAN: DEVIN ARNOLD APRN REASON: light headedness PROCEDURE: PORTABLE CHEST 1V EXAM: CHEST ONE VIEW. HISTORY: Lightheadedness. COMPARISON: 12/29/2020. FINDINGS: A frontal view of the chest is obtained. Hyperinflation is consistent with chronic obstructive pulmonary disease. Pleural parenchymal scarring in the right apex appears unchanged. There are mild interstitial opacities in the bases. There are calcified granulomas in the left midlung and mediastinal lymph nodes. There is no pneumothorax or pleural effusion. The heart is not enlarged. There are atherosclerotic calcifications of the aorta. IMPRESSION: 1. Chronic obstructive pulmonary disease. No confluent infiltrates. Electronically signed by: Kenroy Perez MD (06/29/2021 9:41 AM) [facility] DICTATED and SIGNED BY: MARYANN PEREZ MD DATE: 06/29/21 [id number] [id number] [place] [address] IMAGING REPORT Signed PATIENT: YENNI DAMONUNT: [id number] : 1940 LOCATION: ER AGE: 81 SEX: F EXAM STATUS: PRE ER ORD. PHYSICIAN: DEVIN ARNOLD APRN REASON: light headedness PROCEDURE: CT HEAD WO CONTRAST EXAM: CT HEAD WITHOUT CONTRAST. HISTORY: Lightheadedness. TECHNIQUE: Computed tomography of the head was performed without intravenous contrast. One or more of the following individualized dose reduction techniques were utilized for this examination: 1. Automated exposure control. 2. Adjustment of the mA and/or kV according to patient size. 3. Use of iterative reconstruction technique. COMPARISON: 07/10/2018. FINDINGS: There is a small intraparenchymal hematoma along the right parasagittal frontal lobe at the vertex measuring 1.2 cm. There is mild surrounding vasogenic edema without significant mass effect. There are limitations from motion artifact. Hypoattenuation within the periventricular white matter indicates mild chronic microangiopathic change. There are chronic lacunar infarcts within the left santiago radiata, right putamen and left central feroz. The ventricles are normal in size and position. The visualized paranasal sinuses appear clear. Postsurgical changes are noted along both globes. The temporal bones are unremarkable. The calvarium reveals no suspicious lesions. There are atherosclerotic calcifications of the internal carotid and vertebral arteries. There is a small right parietal scalp hematoma. IMPRESSION: 1. 1.2 cm intraparenchymal hematoma along the right parafalcine frontal lobe. No significant mass effect. 2. Chronic lacunar infarcts as above. 3. Small right parietal scalp hematoma. These findings were called to Dr. Arnold by Noe Perez on 06/29/2021 at 10:03 AM. FOR INTERNAL CODING PURPOSES RESULT CODE: (C) Electronically signed by: Kenroy Perez MD (06/29/2021 10:06 AM) [facility] DICTATED and SIGNED BY: MARYANN PEREZ MD DATE: 06/29/21 [id number] 0 [facility] [address] [place] [address] IMAGING REPORT Signed PATIENT: YENNI DAMON RACCOUNT: [id number] : 1940 LOCATION: ER AGE: 81 SEX: F EXAM STATUS: PRE ER ORD. PHYSICIAN: DEVIN ARNOLD APRN REASON: light headedness, lt knee pain PROCEDURE: KNEE LEFT 4V 4 view left knee radiographs 06/29/2019 CLINICAL HISTORY: Left knee pain. AP, oblique, lateral and sunrise digital radiographs of the left knee were obtained. No fracture or dislocation of the left knee is seen. Mild degenerative changes are seen involving all 3 compartments of the left knee. There is no radiographic evidence of a joint effusion. Extensive calcification of the left popliteal artery and its branches is noted. IMPRESSION: Mild degenerative changes are seen involving the left knee. No acute osseous abnormality is seen. Electronically signed by: Evan Mack MD (06/29/2021 9:38 AM) [id number] DICTATED and SIGNED BY: EVAN MACK MD DATE: 06/29/21 [id number] 0 [facility] [address] [place], [place] [id number] IMAGING REPORT Signed PATIENT: YENNI DAMON RACCOUNT: [id number] : 1940 LOCATION: ER AGE: 81 SEX: F EXAM STATUS: PRE ER ORD. PHYSICIAN: DEVIN ARNOLD APRN REASON: light headedness, LT ANKLE PAIN PROCEDURE: ANKLE LEFT 3V EXAM: LEFT ANKLE 3 VIEWS. HISTORY: Left ankle pain COMPARISON: None. FINDINGS: Three views of the left ankle are obtained. No fractures are identified. Alignment is normal. Joint spaces are maintained. Osteopenia is at least moderate. There is a moderate plantar calcaneal spur. Soft tissue calcifications are noted along the anterior distal june. IMPRESSION: 1. No fracture. Electronically signed by: Kenroy Perez MD (06/29/2021 9:35 AM) [facility] DICTATED and SIGNED BY: MARYANN PEREZ MD DATE: 06/29/21 [id number] (DEVIN ARNOLD APRN) Course & Med Decision Making: Course & Med Decision Making Pertinent Labs and Imaging studies reviewed. (See chart for details) See HPI. Alert and oriented x4. Speaks in full clear sentences. Skin pink warm and dry. No extremity edema left retina permanently dilated but right eye PERRLA. No nystagmus. [id number] intact. Lungs are clear to all station all lobes. Patient is needing to take her Norvasc 5 mg and is asking if we could go ahead and give that to her. Abdomen is soft and nontender. She has full range of motion of the left knee and the ankle. There is no deformity or swelling or bruising. She has no abrasions or lacerations. She denies hitting her head and she is not on blood thinners. No focal bony spinal tenderness. Full range of motion of her neck. Moving all extremities equally with equal strengths. No pain with pelvic rock. No deformity hips and no rotation or shortening. Troponin elevated at 568. I have sent the EKG and spoke to Dr. Cassidy who states EKG looks okay and they will come see the patient. Orthostatics were done and she has quite a drop when she goes to stand up and blood pressure. Going to hold off on blood pressure medication. CT head shows: IMPRESSION: 1. 1.2 cm intraparenchymal hematoma along the right parafalcine frontal lobe. No significant mass effect. 2. Chronic lacunar infarcts as above. 3. Small right parietal scalp hematoma. I have held off on aspirin. Patient will be admitted to the hospitalist. I spoke to Veronique nurse practitioner with Dr. Johnson she states to place the patient in ICU with neuro checks and order a repeat CT scan from the morning. [] (DEVIN ARNOLD APRN) Course & Med Decision Making I have reviewed the PA/ARCHITECTURAL DRAFTSMAN's note and plan of care. I was available for consul tation as needed during the patient's visit in the emergency department. I agree with the clinical impression, plan, and disposition. Patient presented to the emergency department for evaluation of orthostatic lightheadedness. Denied any headache, head trauma or blood thinners. She was found to have a bruise on the occipital scalp. CT head showed evidence of a small intraparenchymal hemorrhage and labs pertinent for an elevated troponin. EKG was nonischemic, patient has no chest pain. Cardiology was consulted, but have lower suspicion for primary NSTEMI. Given head CT findings antiplatelets and anticoagulation was held. Blood pressures have been between 110 and 160 SBP. Given the lower BP, we deferred anti-hypertensives in the ED. Neurosurgery was consulted, and have recommended ICU placement. Was admitted to ICU under hospitalist, Dr. Issa. (MARYANN PABON MD) Dragon Disclaimer: Dragon Disclaimer: This electronic medical record was generated, in whole or in part, using a voice recognition dictation system. (DEVIN ARNOLD APRN) NIHSS Stroke Scale NIH Stroke Scale: NIH Stroke Scale Response (Comments) Value Level of Consciousness: 0 Alert/Responsive 0 LOC Questions: 0 Answers both correctly 0 LOC Commands: 0 Performs both tasks 0 Best Gaze: 0 Normal 0 Visual: 0 No visual loss (left pupil permanently dialated due to retina weakness and surgeries) 0 Facial Palsy: 0 Normal, symmetrical 0 Motor - Left Arm 0 No drift 0 Motor - Right Arm 0 No drift 0 Motor - Left Leg 0 No drift 0 Motor: Right Leg 0 No drift 0 Limb Ataxia: 0 Absent 0 Sensory: 0 No loss 0 Best Language: 0 Normal 0 Dysathria: 0 Normal 0 Extinction and Inattention: 0 Normal 0 Total 0 Departure Departure Impression: Primary Impression: Intraparenchymal hematoma of brain Qualified Codes: S06.340A - Traumatic hemorrhage of right cerebrum without loss of consciousness, initial encounter Additional Impressions: Elevated troponin Near syncope Orthostatic hypotension Disposition: ADMITTED INPATIENT Admitting Physician: KYRIE (DEVIN ARNOLD APRN) Condition: STABLE Referrals: RAFIQ WALKER APRN (PCP) DEVIN ARNOLD APRN Jun 29, 2021 09:14 MARYANN PABON MD Jun 29, 2021 12:19
[2021-06-29 09:16] LABS: BASO # 0.1 x10^3/uL (0.0-0.2); BASO % 1 % (0-3); EOS % 0 % (0-3); HEMATOCRIT 38.7 % (36.0-47.0); HEMOGLOBIN 13.3 g/dL (12.0-15.5); LYMPH # 0.9 x10^3/uL (1.0-4.8); LYMPH % 10 % (24-48); MEAN CORPUSCULAR HEMOGLOBIN 30 pg (25-35); MEAN CORPUSCULAR HGB CONC 34 g/dL (31-37); MEAN CORPUSCULAR VOLUME 88 fL (79-100); MONO # 0.5 x10^3/uL (0.0-1.1); MONO % 6 % (0-9); NEUT # 7.1 x10^3/uL (1.8-7.7); NEUT % 83 % (31-73); PLATELET COUNT 270 x10^3/uL (140-400); RED BLOOD COUNT 4.39 x10^6/uL (3.50-5.40); RED CELL DISTRIBUTION WIDTH 13.8 % (11.5-14.5); WHITE BLOOD COUNT 8.6 x10^3/uL (4.0-11.0)
[2021-06-29 09:18] LABS: BILIRUBIN,URINE NEGATIVE (NEG); CLARITY,URINE CLEAR; COLOR,URINE YELLOW; NITRITE,URINE NEGATIVE (NEG); PH,URINE 7.5 (<5.0-8.0); PROTEIN,URINE NEGATIVE (NEG-TRACE); UROBILINOGEN,URINE 0.2 mg/dL (0.2 mg/dL)
[2021-06-29 09:24] LABS: CALCIUM 7.9 mg/dL (8.5-10.1); CREATININE 0.5 mg/dL (0.6-1.0); POTASSIUM 3.8 mmol/L (3.5-5.1)
[2021-06-29 09:30] LABS: ALBUMIN 3.5 g/dL (3.4-5.0); ALBUMIN/GLOBULIN RATIO 1.2 (1.0-1.7); TOTAL BILIRUBIN 0.6 mg/dL (0.2-1.0); TOTAL PROTEIN 6.5 g/dL (6.4-8.2)
[2021-06-29 09:36] LABS: BACTERIA,URINE FEW /HPF (0-FEW); RBC,URINE 0 /HPF (0-2)
--- NOTE | 2021-06-29 09:37 | RAD ---
EXAM: LEFT ANKLE 3 VIEWS. HISTORY: Left ankle pain COMPARISON: None. FINDINGS: Three views of the left ankle are obtained. No fractures are identified. Alignment is normal. Joint spaces are maintained. Osteopenia is at least moderate. There is a moderate plantar calcaneal spur. Soft tissue calcifications are noted along the anterior distal june. IMPRESSION: 1. No fracture. Electronically signed by: Kenroy Perez MD (06/29/2021 9:35 AM) [facility]
--- NOTE | 2021-06-29 09:40 | RAD ---
4 view left knee radiographs 06/29/2019 CLINICAL HISTORY: Left knee pain. AP, oblique, lateral and sunrise digital radiographs of the left knee were obtained. No fracture or d islocation of the left knee is seen. Mild degenerative changes are seen involving all 3 compartments of the left knee. There is no radiographic evidence of a joint effusion. Extensive calcification of t he left popliteal artery and its branches is noted. IMPRESSION: Mild degenerative changes are seen involving the left knee. No acute osseous abnormality is seen. Electronically signed by: Evan Mack MD (06/29/2021 9:38 AM) [id number]
--- NOTE | 2021-06-29 09:43 | RAD ---
EXAM: CHEST ONE VIEW. HISTORY: Lightheadedness. COMPARISON: 12/29/2020. FINDINGS: A frontal view of the chest is obtained. Hyperinflation is consistent with chronic obstructive pulmonary disease. Pleural parenchymal scarring in the right apex appears unchanged. There are mild interstitial opacities in the bases. There are c alcified granulomas in the left midlung and mediastinal lymph nodes. There is no pneumothorax or pleu ral effusion. The heart is not enlarged. There are atherosclerotic calcifications of the aorta. IMPRESSION: 1. Chronic obstructive pulmonary disease. No confluent infiltrates. Electronically signed by: Kenroy Perez MD (06/29/2021 9:41 AM) [facility]
[2021-06-29] MEDS ORDERED: ASPIRIN 325 MG TABLET PO ONE (09:45)
[2021-06-29] MEDS ORDERED: cefTRIAXone IV Push 1 GM VIAL. IVP ONE (09:45)
--- NOTE | 2021-06-29 10:08 | RAD ---
EXAM: CT HEAD WITHOUT CONTRAST. HISTORY: Lightheadedness. TECHNIQUE: Computed tomography of the head was performed without intravenous contrast. One or more of the following individualized dose reduction techniques were utilized for this examination: 1. Automated exposure control. 2. Adjustment of the mA and/or kV according to patient size. 3. Use of iterative reconstruction technique. COMPARISON: 07/10/2018. FINDINGS: There is a small intraparenchymal hematoma along the right parasagittal frontal lobe at the vertex measuring 1.2 cm. There is mild surrounding vasogenic edema without significant mass effect. There are limitations from motion artifact. Hypoattenuation within the periventricular white matter i ndicates mild chronic microangiopathic change. There are chronic lacunar infarcts within the left cor rosetta radiata, right putamen and left central feroz. The ventricles are normal in size and position. The visualized paranasal sinuses appear clear. Postsurgical changes are noted along both globes. The temporal bones are unremarkable. The calvarium reveals no suspicious lesions. There are atherosclerot ic calcifications of the internal carotid and vertebral arteries. There is a small right parietal scalp hematoma. IMPRESSION: 1. 1.2 cm intraparenchymal hematoma along the right parafalcine frontal lobe. No significant mass eff ect. 2. Chronic lacunar infarcts as above. 3. Small right parietal scalp hematoma. These findings were called to Dr. Arnold by Noe Perez on 06/29/2021 at 10:03 AM. FOR INTERNAL CODING PURPOSES RESULT CODE: (C) Electronically signed by: Kenroy Perez MD (06/29/2021 10:06 AM) [facility]
[2021-06-29 11:38] LABS: PROTHROMBIN TIME PATIENT 13.6 SEC (11.7-14.0)
--- NOTE | 2021-06-29 12:46 | HP ---
DATE OF SERVICE: 06/29/2021 ADMIT DATE: 06/29/2021 CHIEF COMPLAINT: Fall, with dizziness. HISTORY OF PRESENT ILLNESS: The patient is a pleasant 81-year-old female who fell out of her walker. She felt dizzy, does not remember striking her head or passing out. However, when we checked a CAT scan of her brain, she does have a 1.2 cm intraparenchymal hemorrhage and a hematoma on the back of her scalp. I discussed the case with the ER physician, where I admitted the patient to the ICU with consultation to Neurosurgery. PAST MEDICAL HISTORY: Anemia, hyperlipidemia, hypertension, left-sided detached retina, retinal surgery x 5, dental extractions, tobacco abuse. ALLERGIES: PENICILLIN, TYLENOL, MORPHINE. FAMILY HISTORY: Diabetes. SOCIAL HISTORY: She smokes. No drink or drugs. MEDICATIONS: Reviewed, please refer to the MRAD. REVIEW OF SYSTEMS: GENERAL: No history of weight change, weakness or fevers. SKIN: No bruising, hair changes or rashes. EYES: No blurred, double or loss of vision. NOSE AND THROAT: No history of nosebleeds, hoarseness or sore throat. HEART: No history of palpitations, chest pain or shortness of breath on exertion. LUNGS: Denies cough, hemoptysis, wheezing or shortness of breath. GASTROINTESTINAL: Denies changes in appetite, nausea, vomiting, diarrhea or constipation. GENITOURINARY: No history of frequency, urgency, hesitancy or nocturia. NEUROLOGIC: Denies history of numbness, tingling, tremor or weakness. PSYCHIATRIC: No history of panic, anxiety or depression. ENDOCRINE: No history of heat or cold intolerance, polyuria or polydipsia. EXTREMITIES: Denies muscle weakness, joint pain, pain on walking or stiffness. PHYSICAL EXAMINATION: VITALS: Within normal limits and are stable. GENERAL: No apparent distress. Alert and oriented. HEENT: Normal cephalic atraumatic, external auditory canals are patent EYES: Extraocular muscles are intact, pupils are equally round and reactive to light and accommodation MUSCULOSKELETAL: Well developed, well nourished, good range of motion ENDOCRINE: No thyromegaly was palpated LYMPHATICS: No cervical chain or axillary nodes were noted HEMATOPOIETIC: No bruising NECK: Supple, no JVD, no thyromegaly was noted. LUNGS: Clear to auscultation in all lung borges without rhonchi or wheezing. HEART: RRR, S1, S2 present. Peripheral pulses intact, no obvious murmurs were noted. ABDOMEN: Soft, nontender. Positive bowel sounds no organomegaly, normal bowel sounds. EXTREMITIES: Without any cyanosis, clubbing, or edema. Pedal pulses intact, Homans sign is negative. NEUROLOGIC: Normal speech, normal tone. A and O x 3, moves all extremities, no obvious focal deficits. PSYCHIATRIC: Normal affect, normal mood. Stable. SKIN: No ulcerations or rashes, good skin turgor, no jaundice. VASCULAR: Good capillary refill, neurovascular bundle appears to be intact. LABORATORY DATA: Hematology is normal. Sodium is a little low at 134. Urinalysis; small amount of leukocyte esterase, 5-10 white cells. COVID testing is negative. DIAGNOSTIC DATA: CT of the head, I reviewed, it does show a 1.2 cm intraparenchymal hemorrhage. ASSESSMENT AND PLAN: Fall with possible syncope with head trauma causing an intraparenchymal hemorrhage with incidental finding of a urinary tract infection and hyponatremia. The patient has been admitted to the ICU. Consult Neurosurgery. Empiric IV antibiotics. Cardiac monitoring. IV fluids, home meds. DVT prophylaxis. Full code. Frequent neuro checks. CC TIME: 31 minutes. JULISA/SALBADOR/CHRISTINE DR: JULISA/norman TID: [id number]
[2021-06-29] MEDS ORDERED: AMLO-427 PO (12:50)
[2021-06-29] MEDS ORDERED: SIMV20TA18 PO (12:51)
--- NOTE | 2021-06-29 14:14 | PDOC2 ---
CONSULT Date of Consult Date of Consult DATE: 06/29/21 TIME: 14:14 Reason for Consult Reason for Consult: Elevated troponin level Referring Physician Referring Physician: Dr. Issa Identification/Chief Complaint Chief Complaint Dizziness Source Source: Chart review, Patient History of Present Illness Reason for Visit: 81-year-old female presented with dizziness and near syncope. She denied any genia loss of consciousness. She also denied any chest pain, orthopnea/PND or palpitations. CT scan of the head showed cerebral intraparenchymal hemorrhage and scalp hematoma. Patient however denied striking her head. Her troponin level was slightly elevated prompting cardiology consultation. Past Medical History Past Medical History Hypertension Hyperlipidemia Anemia Detached retina Past Surgical History Past Surgical History Dental extractions Family History Family History Negative for premature coronary artery disease and positive for diabetes and hypertension Social History Social History Patient admitted to smoking cigarettes but denied any alcohol or drug use Current Problem List Problem List Problems Medical Problems: (1) Elevated troponin Status: Acute (2) Intraparenchymal hematoma of brain Status: Acute (3) Near syncope Status: Acute (4) Orthostatic hypotension Status: Acute Current Medications Current Medications Current Medications Sodium Chloride 1,000 ml @ 1,000 mls/hr 1X ONCE IV Last administered on 06/29/21at 10:11; Start 06/29/21 at 09:00; Stop 06/29/21 at 09:59; Status DC Amlodipine Besylate (Norvasc) 5 mg 1X ONCE PO ; Start 06/29/21 at 09:00; Stop 06/29/21 at 09:08; Status DC Aspirin ([place] Aspirin) 325 mg 1X ONCE PO ; Start 06/29/21 at 09:45; Stop 06/29/21 at 09:46; Status DC Ceftriaxone Sodium (Rocephin) 1 gm 1X ONCE IVP Last administered on 06/29/21at 10:11; Start 06/29/21 at 09:45; Stop 06/29/21 at 09:46; Status DC Simvastatin (Zocor) 20 mg HS PO ; Start 06/29/21 at 21:00 Amlodipine Besylate (Norvasc) 5 mg DAILY PO ; Start 06/29/21 at 14:30 Simvastatin (Zocor) 20 mg QHS PO ; Start 06/29/21 at 21:00; Status UNV Losartan Potassium (Cozaar) 100 mg DAILY PO ; Start 06/29/21 at 14:30 Active Scripts Active Reported Simvastatin 20 Mg Tablet 1 Tab PO QHS Amlodipine-Olmesartan 5-20 mg (Amlodipine Bes/Olmesartan Med) 1 Each Tablet 1 Each PO DAILY Allergies Allergies: Coded Allergies: Penicillins (Verified Allergy, Intermediate, HIVES , 06/29/21) acetaminophen (Verified Adverse Reaction, Intermediate, NAUSEA , 06/29/21) morphine (Verified Adverse Reaction, Intermediate, Anxiety, 06/29/21) ROS PSYCHOLOGICAL ROS: No: Hallucinations Eyes: No Loss of vision HEENT: No: Epistaxis Respiratory: No: Hemoptysis, Shortness of breath Cardiovascular: No Chest Pain Gastrointestinal: No Vomiting Genitourinary: No Hematuria Neurological: Yes Dizziness; No Seizures Physical Exam General: Alert, Oriented X3 HEENT: Other (Right scalp hematoma) Lungs: Clear to auscultation Heart: Regular rate Abdomen: Soft Extremities: No edema Neuro: Normal speech Psych/Mental Status: Mood NL Vitals VITALS Vital Signs Date Time Temp Pulse Resp B/P (MAP) Pulse Ox O2 Delivery O2 Flow Rate FiO2 06/29/21 13:00 92 28 120/59 (79) 96 Room Air 06/29/21 11:25 97.6 97.6 Labs Labs Laboratory Tests Test 06/29/21 08:40 06/29/21 09:00 06/29/21 10:15 Urine Collection Type Unknown Urine Color Yellow Urine Clarity Clear Urine pH 7.5 (<5.0-8.0) Urine Specific [place] 1.010 (1.000-1.030) Urine Protein Negative mg/dL (NEG-TRACE) Urine Glucose (UA) Negative mg/dL (NEG) Urine Ketones (Stick) Trace mg/dL (NEG) Urine Blood Negative (NEG) Urine Nitrite Negative (NEG) Urine Bilirubin Negative (NEG) Urine Urobilinogen Dipstick 0.2 mg/dL (0.2 mg/dL) Urine Leukocyte Esterase Small (NEG) Urine RBC 0 /HPF (0-2) Urine WBC 5-10 /HPF (0-4) Urine Squamous Epithelial Cells Mod /LPF Urine Bacteria Few /HPF (0-FEW) White Blood Count 8.6 x10^3/uL (4.0-11.0) Red Blood Count 4.39 x10^6/uL (3.50-5.40) Hemoglobin 13.3 g/dL (12.0-15.5) Hematocrit 38.7 % (36.0-47.0) Mean Corpuscular Volume 88 fL (79-100) Mean Corpuscular Hemoglobin 30 pg (25-35) Mean Corpuscular Hemoglobin Concent 34 g/dL (31-37) Red Cell Distribution Width 13.8 % (11.5-14.5) Platelet Count 270 x10^3/uL (140-400) Neutrophils (%) (Auto) 83 % (31-73) Lymphocytes (%) (Auto) 10 % (24-48) Monocytes (%) (Auto) 6 % (0-9) Eosinophils (%) (Auto) 0 % (0-3) Basophils (%) (Auto) 1 % (0-3) Neutrophils # (Auto) 7.1 x10^3/uL (1.8-7.7) Lymphocytes # (Auto) 0.9 x10^3/uL (1.0-4.8) Monocytes # (Auto) 0.5 x10^3/uL (0.0-1.1) Eosinophils # (Auto) 0.0 x10^3/uL (0.0-0.7) Basophils # (Auto) 0.1 x10^3/uL (0.0-0.2) Prothrombin Time 13.6 SEC (11.7-14.0) Prothromb Time International Ratio 1.0 (0.8-1.1) Activated Partial Thromboplast Time 23 SEC (24-38) Sodium Level 134 mmol/L (136-145) Potassium Level 3.8 mmol/L (3.5-5.1) Chloride Level 97 mmol/L (98-107) Carbon Dioxide Level 26 mmol/L (21-32) Anion Gap 11 (6-14) Blood Urea Nitrogen 11 mg/dL (7-20) Creatinine 0.5 mg/dL (0.6-1.0) Estimated GFR (Cockcroft-Gault) 119.0 BUN/Creatinine Ratio 22 (6-20) Glucose Level 114 mg/dL (70-99) Calcium Level 7.9 mg/dL (8.5-10.1) Total Bilirubin 0.6 mg/dL (0.2-1.0) Aspartate Amino Transf (AST/SGOT) 23 U/L (15-37) Alanine Aminotransferase (ALT/SGPT) 21 U/L (14-59) Alkaline Phosphatase 66 U/L (46-116) Troponin I High Sensitivity 568 ng/L (4-50) Total Protein 6.5 g/dL (6.4-8.2) Albumin 3.5 g/dL (3.4-5.0) Albumin/Globulin Ratio 1.2 (1.0-1.7) SARS-CoV-2 Antigen (Rapid) Negative (NEGATIVE) Laboratory Tests Test 06/29/21 08:40 06/29/21 09:00 06/29/21 10:15 Urine Collection Type Unknown Urine Color Yellow Urine Clarity Clear Urine pH 7.5 (<5.0-8.0) Urine Specific [place] 1.010 (1.000-1.030) Urine Protein Negative mg/dL (NEG-TRACE) Urine Glucose (UA) Negative mg/dL (NEG) Urine Ketones (Stick) Trace mg/dL (NEG) Urine Blood Negative (NEG) Urine Nitrite Negative (NEG) Urine Bilirubin Negative (NEG) Urine Urobilinogen Dipstick 0.2 mg/dL (0.2 mg/dL) Urine Leukocyte Esterase Small (NEG) Urine RBC 0 /HPF (0-2) Urine WBC 5-10 /HPF (0-4) Urine Squamous Epithelial Cells Mod /LPF Urine Bacteria Few /HPF (0-FEW) White Blood Count 8.6 x10^3/uL (4.0-11.0) Red Blood Count 4.39 x10^6/uL (3.50-5.40) Hemoglobin 13.3 g/dL (12.0-15.5) Hematocrit 38.7 % (36.0-47.0) Mean Corpuscular Volume 88 fL (79-100) Mean Corpuscular Hemoglobin 30 pg (25-35) Mean Corpuscular Hemoglobin Concent 34 g/dL (31-37) Red Cell Distribution Width 13.8 % (11.5-14.5) Platelet Count 270 x10^3/uL (140-400) Neutrophils (%) (Auto) 83 % (31-73) Lymphocytes (%) (Auto) 10 % (24-48) Monocytes (%) (Auto) 6 % (0-9) Eosinophils (%) (Auto) 0 % (0-3) Basophils (%) (Auto) 1 % (0-3) Neutrophils # (Auto) 7.1 x10^3/uL (1.8-7.7) Lymphocytes # (Auto) 0.9 x10^3/uL (1.0-4.8) Monocytes # (Auto) 0.5 x10^3/uL (0.0-1.1) Eosinophils # (Auto) 0.0 x10^3/uL (0.0-0.7) Basophils # (Auto) 0.1 x10^3/uL (0.0-0.2) Prothrombin Time 13.6 SEC (11.7-14.0) Prothromb Time International Ratio 1.0 (0.8-1.1) Activated Partial Thromboplast Time 23 SEC (24-38) Sodium Level 134 mmol/L (136-145) Potassium Level 3.8 mmol/L (3.5-5.1) Chloride Level 97 mmol/L (98-107) Carbon Dioxide Level 26 mmol/L (21-32) Anion Gap 11 (6-14) Blood Urea Nitrogen 11 mg/dL (7-20) Creatinine 0.5 mg/dL (0.6-1.0) Estimated GFR (Cockcroft-Gault) 119.0 BUN/Creatinine Ratio 22 (6-20) Glucose Level 114 mg/dL (70-99) Calcium Level 7.9 mg/dL (8.5-10.1) Total Bilirubin 0.6 mg/dL (0.2-1.0) Aspartate Amino Transf (AST/SGOT) 23 U/L (15-37) Alanine Aminotransferase (ALT/SGPT) 21 U/L (14-59) Alkaline Phosphatase 66 U/L (46-116) Troponin I High Sensitivity 568 ng/L (4-50) Total Protein 6.5 g/dL (6.4-8.2) Albumin 3.5 g/dL (3.4-5.0) Albumin/Globulin Ratio 1.2 (1.0-1.7) SARS-CoV-2 Antigen (Rapid) Negative (NEGATIVE) Assessment/Plan Assessment/Plan 1. Non-STEMI, most likely type II/demand ischemia. EKG without acute changes. Check 2D echo to assess LV systolic function and rule out wall motion abnormalities. We will consider ischemic evaluation as an outpatient. 2. Intraparenchymal hematoma and scalp hematoma. Patient denied any fall or syncope but highly suspect that. We will consider event monitor recording as an outpatient. Neurosurgery consulted. 3. Hypertension: Controlled 4. Hyperlipidemia: Continue statins 5. UTI: Treat per IM Thank you for your consultation GEMMA BARBOSA MD Jun 29, 2021 14:14
[2021-06-29] MEDS ORDERED: LOSARTAN POTASSIUM 50 MG TABLET. PO SCH (14:30)
[2021-06-29] MEDS ORDERED: LATA2.5D2 OD (16:20)
[2021-06-29] MEDS: SIMVASTATIN 20 MG TABLET PO SCH (20:30)
[2021-06-29] MEDS: LATANOPROST 0.005% OPHTH SOLUTION 2.5ML BOTTLE. OD SCH (20:31)
[2021-06-29] MEDS ORDERED: SIMVASTATIN 20 MG TABLET PO SCH (21:00)
--- NOTE | 2021-06-29 22:56 | EKG ---
[facility] [address] [place] [address] Test Date: 2021-06-29 Test Time: 09:35:13 Pat Name: YENNI DAMON Department: Room: 111 1 Gender: F Arts Administrator Or Manager: : [id number] Requested By: DEVIN ARAGON Order Number: [id number] Reading MD: Sarabjit Roberts MD Measurements Intervals [place] Rate: 94 P: 43 OR: 136 QRS: 22 QRSD: 86 T: 76 QT: 374 QTc: 468 Interpretive Statements SINUS RHYTHM Electronically Signed On 07-08-2021 16:34:59 MANAGER PROFESSIONAL DEVELOPMENT by Sarabjit Roberts MD
[2021-06-30] VITALS (19 sets, daily range): BP systolic 94–136; BP diastolic 44–63
[2021-06-30] MEDS: cefTRIAXone IV Push 1 GM VIAL. IVP SCH (09:00)
[2021-06-30] MEDS: LACTOBACILLUS RHAMNOSUS GG 1 CAPSULE. PO SCH ×2 (09:58→20:09)
--- NOTE | 2021-06-30 10:06 | RAD ---
CT head without contrast: Reason for examination: Serial scans or hematoma. Comparison is made to previous study dated 06/29/2021. Helical images were obtained through the brain with no contrast administered. Reconstruction was perf ormed in sagittal and coronal planes. Exposure: One or more of the following individualized dose reduction techniques were utilized for thi s examination: 1. Automated exposure control 2. Adjustment of the mA and/or kV according to patient size 3. Use of iterative reconstruction technique. Ventricular systems are symmetric and not abnormally dilated. No midline shift is seen. There continu es to be a intraparenchymal hemorrhage in the right parasagittal frontal convexity measuring 1.2 cm i n greatest dimension on the axial view and 1.7 cm in greatest dimension on coronal view and extends c raniocaudally 1.2 cm. On the coronal view, this appears to be slightly larger than on previous exam. There is also some subtle increase density measuring 4.6 mm in size in the lateral right frontal conv exity. No other sites of hemorrhage, infarct or mass is seen. Postop changes seen at the globes. The paranasal sinuses and mastoid air cells are clear. No acute skull abnormality is seen. IMPRESSION: 1.2 x 1.7 x 1.2 cm intraparenchymal hematoma in the right parasagittal frontal convexity which on cor onal view appears be slightly larger. Additional subtle 4.6 mm focus of hyperdensity in the lateral right frontal convexity. Electronically signed by: Luz Marina Schmidt MD (06/30/2021 10:04 AM) [id number]
--- NOTE | 2021-06-30 12:16 | PDOC ---
PROGRESS NOTES Date of Service: DATE: 06/30/21 TIME: 12:15 Subjective Subjective Dizziness improved Objective Objective Vital Signs Date Time Temp Pulse Resp B/P (MAP) Pulse Ox O2 Delivery O2 Flow Rate FiO2 06/30/21 09:59 93 115/63 06/30/21 09:38 Room Air 06/30/21 06:00 25 95 06/30/21 04:00 98.1 98.1 Intake and Output 06/30/21 06:59 Intake Total 1550 ml Output Total 550 ml Balance 1000 ml Intake Oral 550 ml IV Total 1000 ml Output Urine Total 550 ml Physical Exam Abdomen: Soft Heart: Regular rate Extremities: No edema General: Alert, Oriented X3 HEENT: Other (Right scalp hematoma) Lungs: Clear to auscultation Neck: Supple Neuro: Normal speech Psych/Mental Status: Mood NL Assessment Assessment 1. Non-STEMI, most likely type II/demand ischemia. EKG without acute changes. Telemetry did not show any significant arrhythmias. Check 2D echo to assess LV systolic function and rule out wall motion abnormalities. We will consider ischemic evaluation as an outpatient. 2. Intraparenchymal hematoma and scalp hematoma. Patient denied any fall or syncope but highly suspect that. We will consider event monitor recording as an outpatient. Neurosurgery consulted. 3. Hypertension: Controlled 4. Hyperlipidemia: Continue statins 5. UTI: Treat per IM Plan Plan of Care Problems Medical Problems: (1) Elevated troponin Status: Acute (2) Intraparenchymal hematoma of brain Status: Acute (3) Near syncope Status: Acute (4) Orthostatic hypotension Status: Acute Comment Review of Relevant I have reviewed the following items epi (where applicable) has been applied. Medications Current Medications Amlodipine Besylate (Norvasc) 5 mg DAILY PO Last administered on 06/30/21at 09:59; Start 06/29/21 at 14:30 Ceftriaxone Sodium (Rocephin) 1 gm Q24H IVP ; Start 06/30/21 at 09:00 Lactobacillus Rhamnosus (Culturelle) 1 cap BID PO Last administered on 06/30/21at 09:58; Start 06/30/21 at 09:00 Latanoprost (Xalatan) 1 drop QHS OD Last administered on 06/29/21at 20:31; Start 06/29/21 at 21:00 Losartan Potassium (Cozaar) 100 mg DAILY PO ; Start 06/29/21 at 14:30; Stop 06/29/21 at 14:56; Status DC Simvastatin (Zocor) 20 mg HS PO Last administered on 06/29/21at 20:30; Start 06/29/21 at 21:00 Simvastatin (Zocor) 20 mg QHS PO ; Start 06/29/21 at 21:00; Status UNV Vitals/I & O Vital Sign - Last 24 Hours 06/29/21 06/29/21 06/29/21 06/29/21 13:00 14:00 14:58 15:00 Pulse 92 94 94 88 Resp 24 B/P (MAP) 120/59 (79) 124/59 (80) 124/59 118/57 (77) Pulse Ox 96 96 96 O2 Delivery Room Air Room Air Room Air 06/29/21 06/29/21 06/29/21 06/29/21 16:00 17:00 18:00 19:00 Temp 97.9 97.9 Pulse 90 87 94 87 Resp B/P (MAP) 119/57 (77) 118/56 (76) 135/63 (87) 113/49 (70) Pulse Ox 96 96 94 96 O2 Delivery Room Air Room Air Room Air Room Air 06/29/21 06/29/21 06/29/21 06/29/21 20:00 20:00 21:00 22:00 Temp 98.3 98.3 Pulse 88 88 77 Resp 24 B/P (MAP) 104/54 (71) 115/57 (76) 117/53 (74) Pulse Ox 95 95 95 O2 Delivery Room Air Room Air Room Air Room Air 06/29/21 06/30/21 06/30/21 06/30/21 23:00 00:00 01:00 02:00 Temp 98.0 98.0 Pulse 89 88 85 84 Resp 18 B/P (MAP) 117/60 (79) 118/57 (77) 122/58 (79) 120/60 (80) Pulse Ox 95 96 94 95 O2 Delivery Room Air Room Air Room Air Room Air 06/30/21 06/30/21 06/30/21 06/30/21 03:00 04:00 05:00 06:00 Temp 98.1 98.1 Pulse 85 94 96 90 Resp 23 20 26 25 B/P (MAP) 136/62 (86) 121/60 (80) 132/63 (86) 126/57 (80) Pulse Ox 95 96 95 95 O2 Delivery Room Air Room Air Room Air Room Air 06/30/21 06/30/21 09:38 09:59 Pulse 93 B/P (MAP) 115/63 O2 Delivery Room Air Intake and Output 06/29/21 06/29/21 06/30/21 14:59 22:59 06:59 Intake Total 1500 ml 50 ml Output Total 0 ml 250 ml 300 ml Balance 1500 ml -200 ml -300 ml GEMMA BARBOSA MD Jun 30, 2021 12:16
--- NOTE | 2021-06-30 12:36 | PDOC ---
[facility] PROGRESS NOTE Date of Service DOS: DATE: 06/30/21 TIME: 12:35 Chief Complaint Chief Complaint Fall with intraparenchymal hemorrhage (1.2 cm) Anemia, hyperlipidemia, hypertension, left-sided detached retina, retinal surgery x 5, dental extractions, tobacco abuse. History of Present Illness History of Present Illness 06/30/2019 Patient seen and examined in the ICU We repeated her CAT scan of the brain it still shows the previous intraparenchymal hemorrhage but I don't think it has grown by eye Chart reviewed Discussed with RN Vitals/I&O Vitals/I&O: Vital Signs Date Time Temp Pulse Resp B/P (MAP) Pulse Ox O2 Delivery O2 Flow Rate FiO2 06/30/21 09:59 93 115/63 06/30/21 09:38 Room Air 06/30/21 06:00 25 95 06/30/21 04:00 98.1 98.1 I & O 06/29/21 06/29/21 06/30/21 15:00 23:00 07:00 Intake Total 1500 ml 50 ml Output Total 0 ml 250 ml 300 ml Balance 1500 ml -200 ml -300 ml Physical Exam General: Alert, Oriented X3 Heart: Regular rate Abdomen: Soft Extremities: No edema Assessment and Plan Assessmemt and Plan Problems Medical Problems: (1) Elevated troponin Status: Acute (2) Intraparenchymal hematoma of brain Status: Acute (3) Near syncope Status: Acute (4) Orthostatic hypotension Status: Acute Fall with intraparenchymal hemorrhage (1.2 cm) Anemia, hyperlipidemia, hypertension, left-sided detached retina, retinal surgery x 5, dental extractions, tobacco abuse. Plan ICU monitoring Await further neurosurgical input Trend labs Home meds DVT prophylaxis PT OT Full code Prognosis guarded but improving Comment Review of Relevant I have reviewed the following items epi (where applicable) has been applied. Medications: Current Medications Medications (Trade) Dose Ordered Sig/Sangeeta Route PRN Reason Start Time Stop Time Status Last Admin Dose Admin Simvastatin (Zocor) 20 mg HS PO 06/29/21 21:00 06/29/21 20:30 Amlodipine Besylate (Norvasc) 5 mg DAILY PO 06/29/21 14:30 06/30/21 09:59 Latanoprost (Xalatan) 1 drop QHS OD 06/29/21 21:00 06/29/21 20:31 Lactobacillus Rhamnosus (Culturelle) 1 cap BID PO 06/30/21 09:00 06/30/21 09:58 Justifications for Admission Other Justification DIEGO CHACKO III DO Jun 30, 2021 12:36
--- NOTE | 2021-06-30 19:04 | PDOC ---
Provider Note Date of Service: DATE: 06/30/21 TIME: 19:04 Provider Note Patient seen and examined at 1415 consulted for intraparenchymal hemorrhage c/o mild head pain exam- neuro intact, dilates left pupil which is chronic CT with intraparenchymal hematoma in the right parasagittal frontal convexity which is stable on follow up CT ok to transfer to floor PT monitor for hypotension will arrange repeat CT head in a week Justifications for Admission Other Justification ION CABRAL MD Jun 30, 2021 19:04
[2021-06-30] MEDS: LATANOPROST 0.005% OPHTH SOLUTION 2.5ML BOTTLE. OD SCH (20:09)
[2021-06-30] MEDS: SIMVASTATIN 20 MG TABLET PO SCH (20:09)
[2021-07-01] VITALS (9 sets, daily range): BP systolic 108–152; BP diastolic 54–69
[2021-07-01] MEDS: cefTRIAXone IV Push 1 GM VIAL. IVP SCH (08:39)
[2021-07-01] MEDS: LACTOBACILLUS RHAMNOSUS GG 1 CAPSULE. PO SCH ×2 (08:39→19:25)
--- NOTE | 2021-07-01 10:31 | NUR ---
SS following for discharge planning. SS reviewed pt chart and discussed with pt RN. Pt is from home alone and is currently on room air. COVID19 negative. Pt on IV Rocephin. BPCI. In network provider list provided. SS met with pt and spoke with pt's family and discussed discharge planning. Pt considering [facility], ; fax [phone], but would like to discuss with family first. Pt's family notified. PT/OT requested. SS will continue to follow for discharge planning. Addendum: 07/01/21 at 1213 by JENSEN CLOUD SS Pt agreeable to half-way unit at [facility]. PT/OT ordered.
--- NOTE | 2021-07-01 11:27 | PDOC ---
[employer] PROGRESS NOTE Date of Service DOS: DATE: 07/01/21 TIME: 11:26 Chief Complaint Chief Complaint Fall with intraparenchymal hemorrhage (1.2 cm) Anemia, hyperlipidemia, hypertension, left-sided detached retina, retinal surgery x 5, dental extractions, tobacco abuse. History of Present Illness History of Present Illness 07/01/2021 Patient seen and examined in the ICU Reviewed neurosurgeons note He is okay with transferring the patient to the floor Chart reviewed Discussed with RN 06/30/2019 Patient seen and examined in the ICU We repeated her CAT scan of the brain it still shows the previous intraparenchymal hemorrhage but I don't think it has grown by eye Chart reviewed Discussed with RN Vitals/I&O Vitals/I&O: Vital Signs Date Time Temp Pulse Resp B/P (MAP) Pulse Ox O2 Delivery O2 Flow Rate FiO2 07/01/21 08:40 96 176/73 07/01/21 08:00 Room Air 07/01/21 07:24 98.5 18 97 98.5 I & O 06/30/21 06/30/21 07/01/21 15:00 23:00 07:00 Intake Total 400 ml 375 ml 100 ml Output Total 350 ml 400 ml 250 ml Balance 50 ml -25 ml -150 ml Physical Exam General: Alert, Oriented X3 Heart: Regular rate Abdomen: Soft Extremities: No edema Assessment and Plan Assessmemt and Plan Problems Medical Problems: (1) Elevated troponin Status: Acute (2) Intraparenchymal hematoma of brain Status: Acute (3) Near syncope Status: Acute (4) Orthostatic hypotension Status: Acute Fall with intraparenchymal hemorrhage (1.2 cm) Anemia, hyperlipidemia, hypertension, left-sided detached retina, retinal surgery x 5, dental extractions, tobacco abuse. Plan Transfer out of ICU to medical floor Trend labs Home meds DVT prophylaxis PT OT Full code Prognosis has improved a lot Could probably discharge tomorrow and neurosurgery is arranging for a repeat CAT scan of the brain in a week Comment Review of Relevant I have reviewed the following items eip (where applicable) has been applied. Justifications for Admission Other Justification DIEGO CHACKO III, DO Jul 01, 2021 11:27
--- NOTE | 2021-07-01 11:32 | PDOC ---
SOMMER JURADO APRN 07/01/21 1132: CARDIO Progress Notes Date and Time Date of Service 07/01/21 Time of Evaluation 1130 Subjective Subjective: No Chest Pain, No shortness of breath, Other Vitals Vitals Vital Signs Date Time Temp Pulse Resp B/P (MAP) Pulse Ox O2 Delivery O2 Flow Rate FiO2 07/01/21 08:40 96 176/73 07/01/21 08:00 Room Air 07/01/21 07:24 98.5 18 97 98.5 Weight Weight [ ] Input and Output Intake and Output Intake and Output 07/01/21 07:00 Intake Total 875 ml Output Total 1000 ml Balance -125 ml Intake Oral 875 ml Output Urine Total 1000 ml # Voids 1 Microbiology Micro Microbiology 06/29/21 Urine Culture - Final, Complete Physical Exam HEENT: Neck Supple W Full Motion Chest: Symmetric LUNGS: Clear to Auscultation Heart: RRR Abdomen: Soft N/T Extremities: No Edema Neurology: alert, oriented, follow commands Assessment Assessment 1. Non-STEMI, most likely type II/demand ischemia. EKG without acute changes. Telemetry did not show any significant arrhythmias. Echo pending. We will consider ischemic evaluation as an outpatient. 2. Intraparenchymal hematoma and scalp hematoma. Patient denied any fall or syncope but highly suspect that. We will consider event monitor recording as an outpatient. Neurosurgery consulted. 3. Hypertension: Controlled 4. Hyperlipidemia: Continue statins 5. UTI: Treat per IM Justicifation of Admission Dx: Justifications for Admission: Justification of Admission Dx: Yes CA: Acute NSTEMI GEMMA BARBOSA MD 07/02/21 0616: CARDIO Progress Notes Assessment Assessment Patient seen and examined 07/01/2021. Agree with FIELD REPRESENTATIVE/HEALTH EDUCATION's assessment and plan. Telemetry did not show any significant arrhythmias NSTEMI most probably type II/demand ischemia 2D echo showed LVEF 45% with diastolic dysfunction and mild aortic insufficiency We will plan ischemic evaluation as an outpatient SOMMER JURADO APRN Jul 01, 2021 11:32 GEMMA BARBOSA MD Jul 02, 2021 06:16
[2021-07-01] MEDS: LATANOPROST 0.005% OPHTH SOLUTION 2.5ML BOTTLE. OD SCH (19:25)
[2021-07-01] MEDS: SIMVASTATIN 20 MG TABLET PO SCH (19:25)
[2021-07-02] VITALS (7 sets, daily range): BP systolic 98–155; BP diastolic 51–69
[2021-07-02 04:42] LABS: CHOLESTEROL/HDL RATIO 2.3
--- NOTE | 2021-07-02 06:16 | CARD ---
MR#: [id number] Date of Study: 07/01/2021 Ordering Physician: GEMMA CASSIDY, Referring Physician: GEMMA CASSIDY, Tech: Micaela Marinelli, [facility] APPROVED REPORT EXAM: Two-dimensional and M-mode echocardiogram with Doppler and color Doppler. Other Information Quality : AverageHR: 79bpm INDICATION Non STEMI RISK FACTORS Hypertension Hyperlipidemia Smoking 2D DIMENSIONS RVDd2.5 (2.9-3.5cm)Left Atrium(2D)2.1 (1.6-4.0cm) IVSd0.9 (0.7-1.1cm)Aortic Root(2D)2.9 (2.0-3.7cm) LVDd4.0 (3.9-5.9cm)LVOT Diameter2.0 (1.8-2.4cm) PWd0.8 (0.7-1.1cm)LVDs3.1 (2.5-4.0cm) FS (%) 22.9 %SV32.3 ml LVEF(%)46.4 (>50%) Aortic Valve AoV Peak [place].94.4cm/sAoV VTI19.9cm AO Peak GR.3.6mmHgLVOT VTI 15.16cm AO Mean GR.2mmHgAI P 1/2 [id number] Mitral Valve MV E Tiblorlx85.5cm/sMV E Peak Gr.3mmHg MV DECEL [id number] A Bbrrmlrt75.5cm/s MV E Mean Gr.1mmHgE/A Ratio0.9 TDI Lateral E' P. V5.15cm/sMedial E' P. V3.22cm/s E/Lateral E'11.4E/Medial E'18.2 Tricuspid Valve TR P. Ceuowcpr356lx/sRAP NOEOBPEK5awGb TR Peak Gr.75ztVkWFZK82xrWx Pulmonary Vein S1 Yrxnqfux14.3cm/sS2 Xuexraqi03.83cm/s D2 Stibmczf04.8cm/sPVa wdmrdmxv90aouh LEFT VENTRICLE The left ventricle is normal size. There is normal left ventricular wall thickness. The left ventricu lar systolic function is mildly impaired. The Ejection Fraction is 45%. Wall motion consistent with c onduction abnormality. Transmitral Doppler flow pattern is Grade I-abnormal relaxation pattern. RIGHT VENTRICLE The right ventricle is mildly dilated. There is normal right ventricular wall thickness. The right ve ntricular systolic function is normal. ATRIA The left atrium size is normal. The right atrium size is normal. The interatrial septum is intact wit h no evidence for an atrial septal defect or patent foramen ovale as noted on 2-D or Doppler imaging. AORTIC VALVE The aortic valve is normal in structure and function. Doppler and Color Flow revealed mild aortic reg urgitation. There is no significant aortic valvular stenosis. Calculated aortic valve area is 2.46 cm 2 with maximum pressure gradient of 6 mmHg and mean pressure gradient of 3 mmHg. MITRAL VALVE Mitral annular calcification is mild to moderate. There is no evidence of mitral valve prolapse. Ther e is no mitral valve stenosis. Doppler and Color-flow revealed trace mitral regurgitation. TRICUSPID VALVE The tricuspid valve is normal in structure and function. Doppler and Color Flow revealed trace tricus pid regurgitation with an estimated PAP of 33 mmHg. There is no tricuspid valve stenosis. PULMONIC VALVE The pulmonic valve is not well visualized. Doppler and Color Flow revealed no pulmonic valvular regur gitation. GREAT VESSELS The aortic root is normal in size. The IVC is normal in size and collapses >50% with inspiration. PERICARDIAL EFFUSION There is no evidence of significant pericardial effusion. Critical Notification Critical Value: No <Conclusion> The left ventricular systolic function is mildly impaired. The Ejection Fraction is 45%. Transmitral Doppler flow pattern is Grade I-abnormal relaxation pattern. Mild aortic regurgitation. Trace tricuspid regurgitation with an estimated PAP of 33 mmHg. There is no evidence of significant pericardial effusion. Signed by : Gemma Cassidy, Electronically Approved : 07/02/2021 06:15:15
[2021-07-02] MEDS: LACTOBACILLUS RHAMNOSUS GG 1 CAPSULE. PO SCH ×2 (08:31→20:41)
[2021-07-02] MEDS: cefTRIAXone IV Push 1 GM VIAL. IVP SCH (08:33)
--- NOTE | 2021-07-02 13:32 | PDOC ---
[employer] PROGRESS NOTE Date of Service DOS: DATE: 07/02/21 TIME: 13:09 Chief Complaint Chief Complaint Fall with intraparenchymal hemorrhage (1.2 cm) Anemia, hyperlipidemia, hypertension, left-sided detached retina, retinal surgery x 5, dental extractions, tobacco abuse. History of Present Illness History of Present Illness 07/02/2021 No acute events overnight. Patient seen examined bedside. Working with physical therapy at this time. Recommend SNF. Social work actively working on placement. Patient's chart, labs, images were reviewed and discussed with RN 07/01/2021 Patient seen and examined in the ICU Reviewed neurosurgeons note He is okay with transferring the patient to the floor Chart reviewed Discussed with RN 06/30/2019 Patient seen and examined in the ICU We repeated her CAT scan of the brain it still shows the previous intraparenchymal hemorrhage but I don't think it has grown by eye Chart reviewed Discussed with RN Vitals/I&O Vitals/I&O: Vital Signs Date Time Temp Pulse Resp B/P (MAP) Pulse Ox O2 Delivery O2 Flow Rate FiO2 07/02/21 11:11 94 155/69 (97) 07/02/21 08:00 Room Air 07/02/21 07:31 97.8 18 97 97.8 I & O 07/01/21 07/01/21 07/02/21 14:59 22:59 06:59 Intake Total 440 ml Output Total 280 ml 150 ml 350 ml Balance 160 ml -150 ml -350 ml Physical Exam General: Alert, Oriented X3 Heart: Regular rate Abdomen: Soft Extremities: No edema Labs Labs: Laboratory Tests Test 07/02/21 03:15 Triglycerides Level 41 mg/dL (0-150) Cholesterol Level 158 mg/dL (0-200) LDL Cholesterol, Calculated 81 mg/dL (0-100) VLDL Cholesterol, Calculated 8 mg/dL (0-40) Non-HDL Cholesterol Calculated 89 mg/dL (0-129) HDL Cholesterol 69 mg/dL (40-60) Cholesterol/HDL Ratio 2.3 Assessment and Plan Assessmemt and Plan Problems Medical Problems: (1) Elevated troponin Status: Acute (2) Intraparenchymal hematoma of brain Status: Acute (3) Near syncope Status: Acute (4) Orthostatic hypotension Status: Acute Comment Review of Relevant I have reviewed the following items epi (where applicable) has been applied. Justifications for Admission Other Justification CUCO BETANCUR MD Jul 02, 2021 13:32
--- NOTE | 2021-07-02 14:06 | PDOC ---
SOMMER JURADO HOUSING MANAGEMENT OFFICER 07/02/21 1406: CARDIO Progress Notes Date and Time Date of Service 07/02/21 Time of Evaluation 1045 Subjective Subjective: No Chest Pain, No shortness of breath, Other (c/o dizziness with position change) Vitals Vitals Vital Signs Date Time Temp Pulse Resp B/P (MAP) Pulse Ox O2 Delivery O2 Flow Rate FiO2 07/02/21 11:11 94 155/69 (97) 07/02/21 08:00 Room Air 07/02/21 07:31 97.8 18 97 97.8 Weight Weight [ ] Input and Output Intake and Output Intake and Output 07/02/21 07:00 Intake Total 440 ml Output Total 780 ml Balance -340 ml Intake Oral 440 ml Output Urine Total 780 ml # Bowel Movements 1 Laboratory Labs Laboratory Tests Test 07/02/21 03:15 Triglycerides Level 41 mg/dL (0-150) Cholesterol Level 158 mg/dL (0-200) LDL Cholesterol, Calculated 81 mg/dL (0-100) VLDL Cholesterol, Calculated 8 mg/dL (0-40) Non-HDL Cholesterol Calculated 89 mg/dL (0-129) HDL Cholesterol 69 mg/dL (40-60) Cholesterol/HDL Ratio 2.3 Microbiology Micro Microbiology 06/29/21 Urine Culture - Final, Complete Physical Exam HEENT: Neck Supple W Full Motion Chest: Symmetric LUNGS: Clear to Auscultation Heart: RRR (SR) Abdomen: Soft N/T Extremities: No Edema Neurology: alert, oriented, follow commands Assessment Assessment 1. Non-STEMI, most likely type II/demand ischemia. EKG without acute changes. Telemetry did not show any significant arrhythmias. Outpatient ischemic evaluation 2. Intraparenchymal hematoma and scalp hematoma. Patient denied any fall or syncope but highly suspect that. We will consider event monitor recording as an outpatient. Neurosurgery following 3. Hypertension: Controlled 4. Hyperlipidemia: Continue statins 5. Chronic systolic CHF, cardiomyopathy; Echo with LVEF 45% 6. UTI: Treat per IM 7. Dizziness; occurring with position change. check orthos. 8. Tobaccoism; discussed/encourage cessation Justicifation of Admission Dx: Justifications for Admission: Justification of Admission Dx: Yes ID: Acute NSTEMI GEMMA BARBOSA MD 07/02/21 1541: CARDIO Progress Notes Assessment Assessment Patient seen and examined. Agree with RAILROAD SUPERVISOR OF ENGINES's assessment and plan. Telemetry did not show any significant arrhythmias NSTEMI most probably type II/demand ischemia 2D echo showed LVEF 45% with diastolic dysfunction and mild aortic insufficiency Check orthostatics We will plan ischemic evaluation as an outpatient SOMMER JURADO APRN Jul 02, 2021 14:06 GEMMA BARBOSA MD Jul 02, 2021 15:41
[2021-07-02] MEDS ORDERED: NICOTINE 21MG PATCH. TD PRN (16:45)
[2021-07-02] MEDS: LATANOPROST 0.005% OPHTH SOLUTION 2.5ML BOTTLE. OD SCH (20:41)
[2021-07-02] MEDS: SIMVASTATIN 20 MG TABLET PO SCH (20:41)
[2021-07-03 03:20] VITALS: BP 128/60
[2021-07-03 07:00] VITALS: BP 130/60
[2021-07-03] MEDS: LACTOBACILLUS RHAMNOSUS GG 1 CAPSULE. PO SCH (08:42)
[2021-07-03] MEDS: cefTRIAXone IV Push 1 GM VIAL. IVP SCH (08:42)
--- NOTE | 2021-07-03 09:32 | PDOC3 ---
Discharge Summary Visit Information Date of Admission: Jun 29, 2021 Date of Discharge: Jul 03, 2021 Final Diagnosis 1. FALL with new Intraparenchymal hematoma and scalp hematoma. not syncope likely 2. Non-STEMI, type II/demand ischemia. 3. Hypertension: Controlled 4. Hyperlipidemia: Continue statins 5. Chronic systolic CHF, cardiomyopathy; Echo with LVEF 45% 6. Dizziness; occurring with position change. will decrease bp meds 7. Tobaccoism; discussed/encourage cessation fall concussion underweight weakness, fall risk Problems Medical Problems: (1) Elevated troponin Status: Acute (2) Intraparenchymal hematoma of brain Status: Acute (3) Near syncope Status: Acute (4) Orthostatic hypotension Status: Acute Brief Hospital Course Allergies Allergies Coded Allergies Type Severity Reaction Last Updated Verified Penicillins Allergy Intermediate HIVES 06/29/21 Yes acetaminophen Adverse Reaction Intermediate NAUSEA 06/29/21 Yes morphine Adverse Reaction Intermediate Anxiety 06/29/21 Yes Vital Signs Vital Signs Date Time Temp Pulse Resp B/P (MAP) Pulse Ox O2 Delivery O2 Flow Rate FiO2 07/03/21 08:42 85 130/60 07/03/21 07:00 97.6 18 97 Room Air 97.6 Lab Results Laboratory Tests Test 07/02/21 03:15 07/02/21 17:30 Triglycerides Level 41 mg/dL (0-150) Cholesterol Level 158 mg/dL (0-200) LDL Cholesterol, Calculated 81 mg/dL (0-100) VLDL Cholesterol, Calculated 8 mg/dL (0-40) Non-HDL Cholesterol Calculated 89 mg/dL (0-129) HDL Cholesterol 69 mg/dL (40-60) Cholesterol/HDL Ratio 2.3 Coronavirus (COVID-19)(PCR) Not detected (NOT DETECTD) Laboratory Tests Test 07/02/21 17:30 Coronavirus (COVID-19)(PCR) Not detected (NOT DETECTD) Brief Hospital Course Ms. Conner is a 81 old female, admi twth fall, scalp hemtoma, small IP bleed better over days, fall risk and weak, to skilled Discharge Information Condition at Discharge: Improved Follow Up: Weeks Disposition/Orders: D/C to Another Facility Scheduled Amlodipine Besylate (Amlodipine Besylate) 5 Mg Tablet, 5 MG PO DAILY for htn, #30 Prescribed by: ERIN TAYLOR on 07/03/21 0949 Docusate Sodium (Colace) 100 Mg Capsule, 100 MG PO DAILY for prevent constipation, #30 Prescribed by: ERIN TAYLOR on 07/03/2149 Latanoprost (Xalatan) 2.5 Ml Drops, 1 DROP OD QHS for GLAUCOMA, (Reported) Entered as Reported by: VAUGHN MASSEY on 06/29/211619 Last Taken: Unknown Dose on 06/28/212099 Last Action: Continued on 06/29/211619 by VAUGHN MASSEY Simvastatin (Simvastatin) 20 Mg Tablet, 1 TAB PO QHS for hyperlipidemia, #30 Ref 5 (Reported) Entered as Reported by: ROB MITCHELL RN on 06/29/21 125 Last Taken: Unknown Dose on 06/28/212099 Last Action: Continued on 06/29/211404 by ROB MITCHELL RN Scheduled PRN Nicotine (NICODERM CQ 14mg) 1 Each Patch.td24, 1 PATCH TP DAILY PRN for nicotine craving, #20 Prescribed by: ERIN TAYLOR on 07/03/21948 Discontinued Medications Amlodipine Bes/Olmesartan Med (Amlodipine-Olmesartan 5-20 mg) 1 Each Tablet, 1 EACH PO DAILY for hypertension, (Reported) Entered as Reported by: ROB MITCHELL RN on 06/29/211249 Last Taken: Unknown Dose on 06/28/21899 Last Action: Converted on 1404 by ROB MITCHELL RN Patient Instructions Patient Instructions Telemetry did not show any significant arrhythmias Echo showed LVEF 45% with diastolic dysfunction and mild aortic insufficiency Cardio planned ischemic evaluation as an outpatient to skilled for rehab > 30 minutes face to face eval Justicifation of Admission Dx: Justifications for Admission: Justification of Admission Dx: Yes IN: Acute NSTEMI ERIN TAYLOR MD Jul 03, 2021 09:32
[2021-07-03] MEDS ORDERED: NICO1PAT25 TP (09:49)
[2021-07-03] MEDS ORDERED: DOCU-109 PO (09:49)
[2021-07-03] MEDS ORDERED: AMLO-186 PO (09:49)
--- NOTE | 2021-07-03 09:51 | SNU/HH DC ---
DISCHARGE ORDERS DISCHARGE INFORMATION: DISCHARGE DATE: Jul 03, 2021 FINAL DIAGNOSIS intraparenchymal hematoma brain fall concussion orthostatic htn tobacco use disorder underweight weakness, fall risk Problems Medical Problems: (1) Elevated troponin Status: Acute (2) Intraparenchymal hematoma of brain Status: Acute (3) Near syncope Status: Acute (4) Orthostatic hypotension Status: Acute CONDITION ON DISCHARGE: Stable CODE STATUS: Code Status: Full RESIDENTIAL: SNF STAY <30 DAYS: Yes POST DISCHARGE ORDERS: ACTIVITY ORDERS: Resume previous activity, Activity as tolerated WEIGHT BEARING STATUS: Full weight bearing, As tolerated DIET AFTER DISCHARGE: Regular OTHER ORDERS: meal supplement shakes or ice cream please, TREATMENT/EQUIPMENT ORDERS: ADAPTIVE EQUIPMENT NEEDED: Front wheeled walker Physical Therapy For: Evalulation/Treatment Occupational Therapy For: Evaluation/Treatment DISCHARGE MEDICATIONS: Home Meds Active Scripts Nicotine (NICODERM CQ 14mg) 1 Each Patch.td24, 1 PATCH TP DAILY PRN for nicotine craving, #20 PATCH Prov:ERIN TAYLOR MD 07/03/21 Docusate Sodium (COLACE) 100 Mg Capsule, 100 MG PO DAILY for prevent constipation, #30 EA Prov:ERIN TAYLOR MD 07/03/21 Amlodipine Besylate (AMLODIPINE BESYLATE) 5 Mg Tablet, 5 MG PO DAILY for htn, #30 TAB Prov:ERIN TAYLOR MD 07/03/21 Reported Medications Latanoprost (XALATAN) 2.5 Ml Drops, 1 DROP OD QHS for GLAUCOMA, ML 06/29/21 Simvastatin (SIMVASTATIN) 20 Mg Tablet, 1 TAB PO QHS for hyperlipidemia, #30 TAB 5 Refills 06/29/21 Discontinued Reported Medications Amlodipine Bes/Olmesartan Med (Amlodipine-Olmesartan 5-20 mg) 1 Each Tablet, 1 EACH PO DAILY for hypertension, TAB 06/29/21 ERIN TAYLOR MD Jul 03, 2021 09:51
--- NOTE | 2021-07-03 10:55 | PDOC ---
ADRIEN,EMILY ARYA 07/03/21 1055: CARDIO Progress Notes Date and Time Date of Service 07/03/21 Time of Evaluation 1030 Subjective Subjective: No Chest Pain, No shortness of breath, No Palpitations, Other Vitals Vitals Vital Signs Date Time Temp Pulse Resp B/P (MAP) Pulse Ox O2 Delivery O2 Flow Rate FiO2 07/03/21 08:42 85 130/60 07/03/21 08:00 Room Air 07/03/21 07:00 97.6 18 97 97.6 Weight Weight [ ] Input and Output Intake and Output Intake and Output 07/03/21 07:00 Intake Total 720 ml Output Total 550 ml Balance 170 ml Intake Oral 720 ml Output Urine Total 550 ml # Bowel Movements 3 Laboratory Labs Laboratory Tests Test 07/02/21 17:30 Coronavirus (COVID-19)(PCR) Not detected (NOT DETECTD) Microbiology Micro Microbiology 06/29/21 Urine Culture - Final, Complete Physical Exam HEENT: Neck Supple W Full Motion Chest: Symmetric LUNGS: Clear to Auscultation Heart: RRR (SR) Abdomen: Soft N/T Extremities: No Edema Neurology: alert, oriented, follow commands Assessment Assessment 1. Non-STEMI, most likely type II/demand ischemia. EKG without acute changes. Telemetry did not show any significant arrhythmias. Outpatient ischemic evaluation as arranged. Follow up in our office with Dr. Cassidy as scheduled. 2. Intraparenchymal hematoma and scalp hematoma. Patient denied any fall or syncope but highly suspect that. Outpatient event monitor as arranged. Neurosurgery following 3. Hypertension: Controlled 4. Hyperlipidemia: Continue statins 5. Chronic systolic CHF, cardiomyopathy; Echo with LVEF 45%. compensated 6. UTI: Treat per IM 7. Dizziness; occurring with position change. orthos negative 8. Tobaccoism; discussed/encourage cessation Justicifation of Admission Dx: Justifications for Admission: Justification of Admission Dx: Yes OR: Acute NSTEMI GEMMA CASSIDY MD 07/03/212113: CARDIO Progress Notes Assessment Assessment Patient seen and examined. Agree with SALICYLIC ACID BLENDER's assessment and plan. Telemetry did not show any significant arrhythmias NSTEMI most probably type II/demand ischemia 2D echo showed LVEF 45% with diastolic dysfunction and mild aortic insufficiency We will plan ischemic evaluation as an outpatient SOMMER JURADO APRN Jul 03, 2021 10:55 GEMMA CASSIDY MD Jul 03, 2021 21:14
[2021-07-03 11:31] VITALS: BP 118/56
== END 2021-07-03 12:15 | DRG 85 ==
LOC: EDBD → ER 08:34 → 1 WEST ICU 09:51 → 6 SOUTH 07-01 14:44
PROVIDERS: ADMIT Internal Medicine; ATTEND Internal Medicine
DX: S06.340A Traumatic hemorrhage of right cerebrum without loss of consciousness, initial encounter (principal); I21.A1 Myocardial infarction type 2; N39.0 Urinary tract infection, site not specified; I42.9 Cardiomyopathy, unspecified; I50.22 Chronic systolic (congestive) heart failure; E87.1 Hypo-osmolality and hyponatremia; G90.8 Other disorders of autonomic nervous system; D64.9 Anemia, unspecified; E78.00 Pure hypercholesterolemia, unspecified; E78.5 Hyperlipidemia, unspecified; F17.200 Nicotine dependence, unspecified, uncomplicated; H57.04 Mydriasis; I11.0 Hypertensive heart disease with heart failure; I95.1 Orthostatic hypotension; J44.9 Chronic obstructive pulmonary disease, unspecified; M81.0 Age-related osteoporosis without current pathological fracture; R63.6 Underweight; S20.229A Contusion of unspecified back wall of thorax, initial encounter; S89.92XA Unspecified injury of left lower leg, initial encounter; X50.1XXA Overexertion from prolonged static or awkward postures, initial encounter; Z82.49 Family history of ischemic heart disease and other diseases of the circulatory system; Z83.3 Family history of diabetes mellitus; Z91.81 History of falling; W18.39XA Other fall on same level, initial encounter; Y93.89 Activity, other specified; Y92.89 Other specified places as the place of occurrence of the external cause; Y99.8 Other external cause status; Z20.822 Contact with and (suspected) exposure to COVID-19; S06.2X0A Diffuse traumatic brain injury without loss of consciousness, initial encounter
CPT/HCPCS: 36415; 70450; 71045; 73564; 73610; 80053; 80061; 81001; 84484; 85025; 85610; 85730; 87086; 87426; 93005; 93306; 96374; 96376; J0696; J7030; U0003; 97116-GP; 97530-GO; 97535-GO; 99285-25; C8929; G0378

== ENCOUNTER → 2021-08-05 | Outpatient (CLI) | payer MEDICARE ==
[~2021-08-05] MED LIST changes: +AMLO-186 PO; +AMLO-427 PO; +DOCU-109 PO; +LATA2.5D2 OD; -LIDOCAINE 1%/EPI 1:100,000 20 ML VIAL. INJ ONE; -LIDOCAINE 1%/EPI 1:100,000 20 ML VIAL. ONE; +NICO1PAT25 TP; +SIMV20TA18 PO
--- NOTE | 2021-08-05 14:59 | RAD ---
EXAM: CT HEAD WITHOUT CONTRAST. HISTORY: Intracranial hemorrhage. TECHNIQUE: Computed tomography of the head was performed without intravenous contrast. One or more of the following individualized dose reduction techniques were utilized for this examination: 1. Automated exposure control. 2. Adjustment of the mA and/or kV according to patient size. 3. Use of iterative reconstruction technique. COMPARISON: 06/30/2021. FINDINGS: The previously noted intraparenchymal hematomas along the high right frontal sulci are now seen as small regions of hypoattenuation consistent with developing encephalomalacia. There is no sig nificant mass effect. Hypoattenuation within the periventricular white matter indicates mild to moder ate chronic microangiopathic change. The ventricles are normal in size and position. The visualized paranasal sinuses appear clear. There are postoperative changes along both globes. The temporal bones are unremarkable. The calvarium reveals no suspicious lesions. There are atherosclero tic calcifications of the internal carotid and vertebral arteries. IMPRESSION: 1. Expected evolution of the small right frontal intraparenchymal hematomas. There is mild encephalom alacia at their former site. 2. Mild to moderate chronic microangiopathic white matter change. Electronically signed by: Kenroy Perez MD (08/05/2021 2:57 PM) [id number]
== END ==
LOC: EDBD 08-02 09:30 → CT 09:52
PROVIDERS: ATTEND Neurological Surgery
DX: S06.360A Traumatic hemorrhage of cerebrum, unspecified, without loss of consciousness, initial encounter (principal); R90.82 White matter disease, unspecified; G93.89 Other specified disorders of brain; X58.XXXA Exposure to other specified factors, initial encounter; Y93.89 Activity, other specified; Y92.89 Other specified places as the place of occurrence of the external cause; Y99.8 Other external cause status
CPT/HCPCS: 70450

== ENCOUNTER → 2021-09-13 | Outpatient (CLI) | payer MEDICARE ==
[~2021-09-13] MED LIST changes: +REGADENOSON 0.4 MG/5 ML DISP.SYRIN. IV ONE
--- NOTE | 2021-09-13 16:11 | RAD ---
MR#: [id number] Date of Study: 09/13/2021 Ordering Physician: GEMMA BARBOSA, Referring Physician: KEN CASEY Tech: Rachel Waddell RT (R) (N) APPROVED REPORT Test Type: Pharmacological Stress Nurse/Tech: Brittny Beatty R.N. Test Indications: elevated troponin Cardiac History: htn, high chol. smoker Medications: see ehr Medical History: see ehr Resting ECG: sr Resting Heart Rate: 91 bpm Resting Blood Pressure: 150/55mmHg Pretest Chest Pain: No chest pain Nurse/Tech Notes lungs cta, heart tones regular Consent: The procedure was explained to the patient in lay terms. Informed consent was witnessed. Bautista eout was entered into [email or web address]. History and Stress Test performed by ANNAMARIA Minor, ANDREW (R) (N) Pharm. Details Pharmacologic stress testing was performed using 0.4mg per 5ml of regadenoson given intravenously ove r 7-10 seconds. Stress Symptoms No chest pain or symptoms.Dyspnea POST EXERCISE Reason for Termination: Infusion complete Target HR: No Max HR: 106 bpm Max Blood Pressure: 153/50mmHg Chest Pain: No. Arrhythmia: Yes. unifocal pvcs noted INTERPRETATION Stress EKG Conclusion: The resting EKG showed a sinus rhythm with minimal ST segment changes. The stress EKG showed no significant changes from baseline. No EKG evidence of stress-induced ischemia. Imaging Protocol IMAGE PROTOCOL: Rest Tc-99m/stress Tc-99m 1 day Rest: Stress: Viability: Radiopharm.Tc99m [id number] Sestamibi Dose10.5mCi 30mCi Duration 13min. 13min. Img Date 09/13/2021 09/13/2021 Inj-Img Apck17ofr. 60min. Rest Admin Site:IV - Right AntecubitalAdministrator:ANNAMARIA Minor, ANDREW (R)(N) Stress Admin Site: IV - Right AntecubitalAdministrator: ANNAMARIA Minor ARRT (R)(N) STRESS DATA End Diast. Vol.45.0mlLVEDV index BSA32.0ml End Syst. Vol.9.0mlLVESV index BSA6.0ml Myocardial Mass84.0gEject. Vfwhxoox40.0% Stress Scores Regional WT0.00Summed WT3.00 Regional WM0.00Summed WM0.00 LV Perfusion The stress scans showed no significant defects. The rest scans showed no significant defects. Nuclear imaging shows no reversible ischemia or infarct. Wall Motion Left ventricular systolic function is intact with an ejection fraction of greater than 70%. LV Perf. Quant 17 Seg. SSS0.00 17 Seg. SRS0.00 17 Seg. SDS0.00 Stress Defect Extent (% LAD)0.00Rest Defect Extent (% LAD)0.00Rev. Defect Extent (% LAD)0.00 Stress Defect Extent (% LCX) 0.00Rest Defect Extent (% LCX)0.00Rev. Defect Extent (% LCX)0.00 Stress Defect Extent (% RCA)0.00Rest Defect Extent (% RCA)0.00Rev. Defect Extent (% RCA)0.00 Stress Defect Extent (% ISA)0.00Rest Defect Extent (% ISA)0.00Rev. Defect Extent (% ISA)0.00 Conclusion 1. No EKG evidence of stress-induced ischemia. 2. Nuclear imaging shows no reversible ischemia or infarct. 3. Intact LV systolic function with an ejection fraction of greater than 70%. 4. Low risk Lexiscan nuclear stress test. Signed by : Emre Carreon MD Electronically Approved : 09/13/2021 16:11:07
== END ==
LOC: EDBD → NM 07:38
PROVIDERS: ATTEND Internal Medicine Cardiovascular Disease
DX: R79.89 Other specified abnormal findings of blood chemistry (principal)
CPT/HCPCS: 78452; 93017; A9500; J2785